=== PATIENT | male | born 1940 | race Caucasian/White ===

== ENCOUNTER 2017-05-23 09:58 | Outpatient (CLI) | payer MEDICARE, BC ==
--- NOTE | 2017-05-23 13:34 | CT ---
CT THORAX WITH CONTRAST CT ABDOMEN WITH CONTRAST CT PELVIS WITH CONTRAST: Date: 05/23/17 HISTORY: 76-year-old male with esophageal cancer, ICD-10: C15.5. Please compare with the last CT scan and comment on 5 mm and 3 mm nodules in left upper lobe. TECHNIQUE: IV iodinated contrast media: 100 mL Isovue-370. Oral contrast media: Readi-Cat. Single phase scans of thorax, abdomen, and pelvis. COMPARISON: 01/30/17 and 12/30/16. FINDINGS: Thorax: On the report of 12/30/16, a tiny nodule was noted at the posterior segment of the left upper lobe ( with arrow) and another tiny nodule was noted in the anterior segment of the left upper lobe. When m atching image to image, the posterior segment nodule (current axial image 16 of 62, series 3; previo us axial image 16 of 61, series 3 on 12/30/16; and image 127 of 1040 of series 4 on the 0.63 mm thin slice current study) is no larger than it was. It actually measures approximately 2 x 3 mm. In retr ospect, it has not changed compared to a much older CT of 09/24/14 (image 22 of 72, series 3). The a pparent difference and greater prominence on the 12/30/16 CT was due to technical differences. This is benign. The 5 mm pulmonary nodule mentioned in the anterior segment of the left upper lobe (seen on current image 22 of 62, series 3; current image 170 of 1040, series 4 on the 0.63 mm very thin slice current study) is unchanged since 12/30/16, measures approximately 4 x 1 mm, and in retrospect, can be seen on the older CT of 09/24/14 (axial image 26 of 72, series 3). It is benign. There are no new pulmonary nodules. No evidence of pulmonary metastasis. There is a small consolidat ion with air bronchogram and architectural distortion at the medial aspect of the left lower lobe ne ar the descending aorta, which is stable since 12/30/16, and smaller compared to 09/24/14. No pleura l effusion. Ectasia of ascending aorta. Calcification of LAD. No pericardial effusion. No mediastina l, hilar, or axillary suspicious lymphadenopathy. Right subclavian implantable vascular access port with distal tip in SVC. Diffuse mild mural thickening of the esophagus, questionable for esophagitis . No obvious large esophageal mass identified. No destructive osseous rib lesion. Abdomen: Bilateral kidneys, abdominal aorta, adrenals, pancreas, liver, and spleen are essentially normal. No retroperitoneal or rae hepatic lymphadenopathy. No obvious pathology of visualized portions of sm all intestine and colon. Scattered slightly enlarged mesenteric lymph nodes are stable since 7, in the left upper quadrant. No free fluid. Hyperdense material in the gallbladder fossa may repre sent gallstones within a contracted gallbladder. Pelvis: Normal appendix. Superior extension of prostate gland indenting the bladder base. No major pathology of the bladder. No iliac chain lymphadenopathy. No free fluid. Rectum and sigmoid colon are unremar kable. No destructive osseous lesion of the pelvis. No interval change overall since 01/31/17 and . IMPRESSION: 1. No evidence of metastatic disease in the chest, abdomen, or pelvis. 2. Mildly enlarged prostate. 3. Coronary atherosclerotic disease. 4. Ectasia of ascending aorta. 5. No interval change overall compared to 01/30/17 and 12/30/16. 6. Small focus of chronic atelectasis in the left lower lobe. JN R POS: FRANCOISE
--- NOTE | 2017-05-23 14:18 | NM ---
NUCLEAR MEDICINE MULTIGATED ACQUISITION CARDIAC SCAN: (MUGA) Date: 05/23/17 HISTORY: 76-year-old male with malignant neoplasm of lower third of the esophagus, for chemotherapy cardiac t oxicity assessment. TECHNIQUE: 31.5 mCi technetium-99m tagged erythrocytes injected IV. Short axis gated acquisition with counts obtained over left ventricular chamber during cardiac cycle . FINDINGS: The left ventricular ejection fraction is 50%. On the 07/04/16 study, it was 54%, and on 06/01/15, it was 57%. IMPRESSION: Left ventricular ejection fraction of 50%. POS: VINOD
[2017-05-23] MEDS ORDERED: Iopamidol 370 76% 100 ML VIAL ONE (16:08)
== END 2017-05-23 09:59 | disposition home or self-care (01) ==
LOC: CT 09:58
PROVIDERS: ATTEND Internal Medicine Medical Oncology
DX: Z08 Encounter for follow-up examination after completed treatment for malignant neoplasm (principal); C15.9 Malignant neoplasm of esophagus, unspecified; I25.10 Atherosclerotic heart disease of native coronary artery without angina pectoris; I77.810 Thoracic aortic ectasia; J98.11 Atelectasis; N40.0 Benign prostatic hyperplasia without lower urinary tract symptoms
CPT/HCPCS: 71260; 74177; 78472; 82565; A9604

== ENCOUNTER 2017-06-19 12:04 | Outpatient (CLI) | payer MEDICARE, BC ==
--- NOTE | 2017-06-19 17:26 | NM ---
MUGA SCAN: Date: 06/19/17 HISTORY: Malignant neoplasm of lower third of the esophagus. RADIOPHARMACEUTICAL: 27 mCi technetium-99m labeled RBCs injected intravenously. FINDINGS: Comparison made with exam of 05/23/17. The left ventricular ejection fraction measures 62% (50% on 05/23/17). Left ventricular wall motion is normal. IMPRESSION: LVEF of 62%. POS: FRANCOISE
== END 2017-06-19 12:05 | disposition home or self-care (01) ==
LOC: NM 12:04
PROVIDERS: ATTEND Internal Medicine Medical Oncology
DX: Z08 Encounter for follow-up examination after completed treatment for malignant neoplasm (principal); C15.5 Malignant neoplasm of lower third of esophagus; R11.2 Nausea with vomiting, unspecified; C16.0 Malignant neoplasm of cardia; D70.9 Neutropenia, unspecified; Z79.899 Other long term (current) drug therapy
CPT/HCPCS: 78472; A9604

== ENCOUNTER 2017-07-17 12:00 | Outpatient (CLI) | payer MEDICARE, BC ==
--- NOTE | 2017-07-17 16:33 | MRI ---
MRI BRAIN WITH AND WITHOUT CONTRAST: Date: 07/17/17 Multiplanar, multisequential imaging of brain obtained. Postcontrast images obtained after administra tion of IV MultiHance. HISTORY: Esophageal cancer with brain mets. Follow-up brain lesions. Comparison made to MRI brain dated 04/24/17. FINDINGS: Ventricles are of normal size and position. Diffuse hyperintensity is seen on FLAIR sequence througho ut the periventricular white matter. This suggests diffuse chronic ischemic white matter change which appears stable. There are bilateral frontal lobe lesions which have been previously described. There is surrounding g liosis at both of these sites with some volume loss on the left surrounding the left lesion indicatin g previously treated metastatic lesions as noted previously. Some intrinsic high T1 signal on the fro ntal lobe lesion is stable in appearance. No significant enhancement of either of these lesions. No i nterval change with either of these lesions. Prior exam had described increasing signal involving two right cerebellar lesions. These lesions are again seen on postcontrast T1 volume acquisition axial images. These lesions are slightly more promin ent today and appear to have slightly enlarged. These lesion measures 7.0 and 5.0 mm, respectively. P reviously, they measured approximately 5.0 and 4.0 mm. No other interval change noted. IMPRESSION: 1. Slight increase in signal and size of the two right cerebellar lesions when compared to the prior exam. 2. Frontal lobe lesions remain stable in appearance. POS: FRANCOISE
[2017-07-17] MEDS ORDERED: Gadobenate Dimeglumine 529 MG/1 ML (20ML VIAL) ONE (17:26)
== END 2017-07-17 12:01 | disposition home or self-care (01) ==
LOC: MRI 12:00
PROVIDERS: ATTEND Radiology Radiation Oncology
DX: C15.9 Malignant neoplasm of esophagus, unspecified (principal); C79.31 Secondary malignant neoplasm of brain
CPT/HCPCS: 70553; A9579

== ENCOUNTER 2017-11-08 09:12 | Outpatient (CLI) | payer MEDICARE, BC ==
--- NOTE | 2017-11-08 12:37 | CT ---
CT CHEST WITH IV CONTRAST: CT ABDOMEN AND PELVIS WITH IV AND ORAL CONTRAST: HISTORY: Esophageal cancer. Re-staging. COMPARISON: 05/23/2017 FINDINGS: The lungs remain hyperinflated. Parenchymal scarring at the left posterior medial lung base is uncha nged in appearance and is likely related to prior radiation. The tiny nonspecific nodule in the left upper lobe is stable. Calcification is again demonstrated in the coronary arteries. A small amount of oral contrast is apparent within the lower esophagus. Nonspecific lymph nodes scattered about th e mediastinum and abdomen are stable. The gallbladder remains decompressed with hyperdense stones. There are degenerative changes of the lumbar spine. The urinary bladder is unremarkable. IMPRESSION: No CT evidence of metastatic disease. Chronic type findings, as detailed above, are stable. POS: VINOD
--- NOTE | 2017-11-08 13:38 | NM ---
RADIONUCLIDE MUGA SCAN LEFT VENTRICLE: HISTORY: Esophageal cancer. COMPARISON: 07/04/2016 FINDINGS: Gated planar images show no focal left ventricular wall motion abnormalities. Left ventricular eject ion fraction is calculated at 62% (previously 54%). IMPRESSION: Normal left ventricular ejection fraction. POS: VINOD
[2017-11-08] MEDS ORDERED: Iopamidol 370 76% 100 ML VIAL ONE (14:55)
== END 2017-11-08 09:13 | disposition home or self-care (01) ==
LOC: CT 09:12
PROVIDERS: ATTEND Internal Medicine Medical Oncology
DX: C15.5 Malignant neoplasm of lower third of esophagus (principal); C16.0 Malignant neoplasm of cardia; D70.9 Neutropenia, unspecified; C78.00 Secondary malignant neoplasm of unspecified lung; C78.7 Secondary malignant neoplasm of liver and intrahepatic bile duct; C77.2 Secondary and unspecified malignant neoplasm of intra-abdominal lymph nodes
CPT/HCPCS: 71260; 74177; 78472; 82565; A9604

== ENCOUNTER 2017-12-20 12:50 | Outpatient (CLI) | payer MEDICARE, BC ==
[2017-12-20] MEDS ORDERED: Gadobenate Dimeglumine 529 MG/1 ML (20ML VIAL) ONE (13:27)
--- NOTE | 2017-12-20 15:31 | MRI ---
MRI BRAIN WITH AND WITHOUT CONTRAST: DATE: 12/20/2017 HISTORY: A 77-year-old male with C79.31, secondary malignant neoplasm of brain. Esophageal cancer, metastatic to the brain, status post external beam radiation therapy. Followup an d restaging. COMPARISON: MRI of 07/17/2017. TECHNIQUE: Multiple sequences obtained in axial, sagittal, and coronal planes; pre and post IV injection of gado linium-based contrast agent: MultiHance 15 mL. FINDINGS: There is no restricted diffusion. No obstructive hydrocephalus. No midline shift or any other mass effect. No extraaxial fluid collection. Again demonstrated is the mucosal thickening throughout the left sphenoid air cell. Whereas previously there was an air-fluid level in this dominant left sphen oid air cell, there is currently signal void in the lumen on all pulse sequences. The very small, approximately 0.7 cm intraaxial enhancing metastatic nodule at the inferomedial anter ior aspect of the right cerebellar hemisphere, with hemosiderin stain indicating prior hemorrhage, rojas s not significantly changed. Located a distance of approximately 1.5 cm lateral to this, at the infe rior aspect of the right cerebellar hemisphere, there is a slightly smaller such metastatic lesion, w hich also has not greatly changed. At the lateral posterior aspect of the left cerebrum, the previously demonstrated complex, solid and cystic, partially irregularly enhancing metastatic mass, measuring approximately 2.1 x 2.1 x 1.7 cm, currently measures approximately 2.4 x 2.7 x 2.1 cm, and has a greater degree of peripheral, irregula r enhancement, especially along its anterior aspect, where the enhancement is thick. There is new th in rim enhancement at its posterior edge, whereas there was no enhancement of the posterior rim on th e prior study. Furthermore, there is now hyperintense signal on the FLAIR sequence filling the lumen of the cystic component of this mass, whereas previously this was hypointense on FLAIR. This indica alejandra more proteinaceous contents of the fluid component of this metastatic lesion. There is greater de gree of surrounding vasogenic edema. Again demonstrated is the small, approximately 0.6 cm round lesion, which is heterogeneously hypointe nse in signal on T1 WI and FLAIR, and hyperintense on T2 WI, located in the right middle frontal gyru s (best seen on FLAIR axial image 19 of 25, series 2). This questionably has a minimal, faint, punct ate focus of enhancement now (axial image 141 of 192, series 8). This has not changed in size. Ther e continues to be surrounding vasogenic edema involving this. There are severe chronic ischemic white matter changes of the cerebrum, No obstructive hydrocephalus. IMPRESSION: 1. Interval worsening of the moderate sized left lateral frontal lobe complex solid and cystic metas tatic brain mass. 2. Two tiny right lower cerebellar metastatic lesions are stable since 07/17/2017. 3. Tiny right upper lateral frontal lobe lesion has not changed in size. Whereas previously it did not enhance, there is questionable minimal enhancement now. 4. Severe chronic ischemic white matter changes, accelerated due to post radiation changes. 5. Sphenoid sinus mucosal disease. 6. No intracranial mass effect or acute hemorrhage. SHAY Castillo POS: CECIL
== END 2017-12-20 12:51 | disposition home or self-care (01) ==
LOC: MRI 12:50
PROVIDERS: ATTEND Radiology Radiation Oncology
DX: C15.9 Malignant neoplasm of esophagus, unspecified (principal); C79.31 Secondary malignant neoplasm of brain; J32.9 Chronic sinusitis, unspecified
CPT/HCPCS: 70553; 82565; A9579; J1642

== ENCOUNTER 2018-02-10 12:33 | Inpatient (IN) | payer MEDICARE, BC ==
[2018-02-10] MEDS ORDERED: Dexamethasone 4 mg/ml Vial ONE (12:52)
[2018-02-10] MEDS ORDERED: Acetaminophen 650 MG Suppository ONE (13:08)
[2018-02-10 13:38] LABS: Bilirubin Negative (Negative); Blood, Urine Moderate (Negative); Clarity CLOUDY (Clear); Glucose, Urine (Dipstick) Negative (Negative); Leukocyte Negative (Negative); Nitrite Negative (Negative); Protein, Urine (Dipstick) Trace mg/dL (Neg-Trace); Specific Gravity, Urine 1.014 (1.002-1.036); pH, Urine 6.5 (5.0-9.0)
[2018-02-10 13:40] LABS: Bacteria/HPF 3+ HPF (None Seen); Hyaline Casts/LPF 4-6 HYALINE CAST LPF (0-3 Hyaline); Pathc Cast-AUWi Flag 0.29 (0-2.49); Squamous Epithelial 0-3 HPF (0-3); WBC/HPF 0-3 HPF (0-3)
[2018-02-10] MEDS ORDERED: Lorazepam 2 MG/ML VIAL SLOW IVP PRN (15:37)
[2018-02-10] MEDS ORDERED: Acetaminophen 325 MG TAB PO PRN (15:37)
[2018-02-10] MEDS ORDERED: Loratadine 10 MG TAB PO PRN (15:37)
[2018-02-10] MEDS ORDERED: cloNIDine 0.1 MG TAB PO PRN (15:37)
[2018-02-10] MEDS ORDERED: Senokot 8.6 MG TAB PO PRN (15:37)
[2018-02-10] MEDS ORDERED: Loperamide HCl 2 MG CAP PO PRN (15:37)
[2018-02-10] MEDS ORDERED: Milk Of Magnesia 30 ML UDCUP PO PRN (15:37)
[2018-02-10] MEDS ORDERED: Ondansetron ODT 4 MG TAB PO PRN (15:37)
[2018-02-10] MEDS ORDERED: Diabetic Tussin 200 MG/10 ML UDCUP PO PRN (15:37)
[2018-02-10] MEDS ORDERED: hydrALAZINE 20 MG/ML VIAL SLOW IVP PRN (15:37)
[2018-02-10] MEDS ORDERED: Sodium Chloride 0.65% Nasal 44 ML BOT EA NARE PRN (15:37)
[2018-02-10] MEDS ORDERED: Mag-Al 1200 mg/1200 mg/30 ML UDCUP PO PRN (15:37)
[2018-02-10] MEDS ORDERED: HYDROcodone/Acetaminophen 5/325 mg Tablet PO PRN (15:37)
[2018-02-10] MEDS ORDERED: Eucerin (Mineral Oil/Petrolatum,White) 30 gm Jar TOP PRN (15:37)
[2018-02-10] MEDS ORDERED: Ondansetron HCl/PF 4 MG/2 ML Vial IVP PRN (15:37)
[2018-02-10] MEDS ORDERED: Labetalol HCl 100 MG/20 ML VIAL SLOW IVP PRN (15:37)
--- NOTE | 2018-02-10 16:42 | HP ---
PRIMARY CARE PHYSICIAN: Dr. Pop Dawson in [place]. REASON FOR ADMISSION: Transfer from [facility] for altered mental status and focal seiz ure. HISTORY OF PRESENT ILLNESS: This is a 77-year-old male, who has metastatic esophageal cancer. He rojas s brain metastasis. His last MRI brain in 12/2017 showed moderate-sized increased and worsening left lateral frontal lobe complex, solid and cystic metastatic brain mass as well as he had right lower c erebellar metastatic lesion and right upper lateral frontal lobe lesion. He does have chronic severe ischemic white matter changes in his brain. This patient had last chemotherapy in mid December. At that time, this MRI was done. He is supposed to get another chemotherapy end of December, but he fell down at his home and he broke his hip. Subsequently, he was admitted in [facility]. After surgical co rrection of that fracture patient was transferred to [facility] and after that the patient was transf erred to [facility] [place]. Patient's son reports that the patient had a little bit progress at [facility], but they were concern ed about his overall weakness and that is why they decided to send him to [facility] [place]. Patient normally at the jail able to ambulate by himself. He was requiring little bit assist ant with shower. He was able to feed by himself and he was getting around whenever he gets tired wit h the wheelchair. Patient has DNR status at jail, and I spoke with the patient's son, who is medical power of a ttorney. He wants to continue DNR while in hospital as well. Today, the patient had a focal seizure and he was having right-sided weakness and he was having diffi culty talking and that is why patient's son was called and patient was taken to local emergency room in [place]. At [facility] he was having stroke-like symptoms. He appeared altered. He was struggling to brush his teeth. He was having right-sided weakness. He was not able to use his right side and h e was not able to provide any meaningful history, because of aphasia. This patient had a CT brain at [facility] and they suspected intraparench ymal hemorrhage of brain or subarachnoid hemorrhage, but Dr. Jimenez's report stated that he does n ot have any bleeding based on his review of imaging. Initially, this patient was planned for admission to neurosurgeon, because of hemorrhage, but after D chayo Jimenez reviewed a CT brain and there was no bleed in his brain that is why he reported that thi s patient should be admitted under Medicine Service. When I saw this patient, at that time patient was hemodynamically stable and he was maintaining his r espirations very well and he was not having any further seizure. CT brain done at [place] [facility] showed 3 cm area of acute hemorrhage within the left frontopa rietal region with a possible underlying hypodense mass in this region. There may be some subarachno id hemorrhage in this region and they recommended further investigation with MRI. The patient was tr eated with lorazepam 1 mg, morphine 4 mg, Zofran 4 mg, IV fluid at [place] [facility], and subseq uently, this patient was transferred to our hospital for further admission. PAST MEDICAL HISTORY: Metastatic esophageal cancer; hypertension; seasonal allergy; senile dementia; history of CVA; oropharyngeal dysphagia; history of UTI; recent history of fracture of right femur, required surgery; hypertension; benign enlargement of prostate. PAST SURGICAL HISTORY: MediPort placement, recent repair of right femur fracture, cervical spine ambrosio namita. PAST PSYCHIATRIC HISTORY: Reviewed and negative. ALLERGIES: PENICILLIN. CURRENT HOME MEDICATIONS: Proscar 5 mg p.o. daily, Flonase nasal spray daily, Keppra 1000 mg p.o. b. i.d., Mycostatin swish and swallow p.r.n., Protonix 40 mg p.o. daily, Flomax 0.4 mg p.o. daily, Decad helen 4 mg t.i.d., Dulcolax p.r.n. basis. REVIEW OF SYSTEMS: All review of system tried to review with the patient, but unable to review at th is point, because of altered mental status and patient's cognitive impairment. CODE STATUS: I spoke with the patient's son, who is present at bedside and confirmed the patient's D NR status. Patient's son is medical power of employment law attorney. EMERGENCY ROOM COURSE: Patient was given Zofran, Ativan, morphine 4 mg, IV fluid at [place] [facility]. SOCIAL HISTORY: The patient is . He currently lives at [facility]. He is retired. He has 3 children. His son is medical power of employment law attorney. He is DNR. He does not have any tobacco, alcohol, or other illicit drug abuse history. FAMILY HISTORY: Father had a myocardial infarction. PHYSICAL EXAMINATION: VITAL SIGNS: Currently, blood pressure 144/79, pulse 91, respiratory rate 15, temperature 100.2 and then 101.1 rectally, saturation 98% on 2 liters, weight 69.9 kilograms. GENERAL: Patient is currently lethargic, opens eyes on verbal command, but does not follow any comma nd. He has incomprehensible speech. HEAD: Normocephalic, atraumatic. EYES: Dry eyes. No nystagmus, no pallor. ENT: Dry mucous membrane, no oral lesion, no pharyngeal erythema, no exudate. NECK: Supple, no JVD, no thyromegaly, no carotid bruit. LUNGS: Coarse breath sound noted. CARDIAC: S1 and S2 regular. No murmur elicited, no gallop, no rub. ABDOMEN: Soft, bowel sounds present, nontender, nondistended. No organomegaly, no mass, no suprapub ic tenderness. BACK EXAMINATION: Unremarkable, no CVA tenderness. EXTREMITIES: Upper extremities, passive movement of all joints are normal. Lower extremities, passi ve movement of all joints are normal. Patient does have bruise on the right lower extremity, patient does have edema on both lower extremities. Good distal pulsation. SKIN: The patient does have a bruise on the right lower extremity, which his son attributes after a fall, resolving. NEUROLOGIC: Unable to examine neurologically, because patient is not following commands. SIGNIFICANT LABORATORY DATA: CBC: WBC 14.4, hemoglobin 11.3, platelets 87. Troponin I 0.03. BMP, glucose 80, BUN 19, creatinine 0.63. Sodium 138, potassium 4.3, chloride 99, carbon dioxide 30, calc ium 8.7, bilirubin 1.6, alkaline phosphatase is 158, SGOT 18, SGPT 72, protein 5.8, albumin 2.8. INR 1.0. CT brain reported from [place], has a 3 cm area of acute hemorrhage within the left frontopari etal region with possible underlying hypodense mass in this region. No significant mass effect. The re is some subarachnoid hemorrhage in this region. Lactic acid is 1.1. Urinalysis, microscopic hematuria with bacteria 3+. ASSESSMENT AND PLAN: 1. Acute encephalopathy. 2. Suspected intraparenchymal/subarachnoid hemorrhage based on CT scan report. 3. Worsening metastatic lesion in his brain with primary malignancy esophagus. 4. Right-sided weakness, dysphagia, dyspepsia, and altered mental status, likely related with metast atic lesion in his brain. 5. Sepsis. Source is unclear, but suspected urinary tract. 6. Benign enlargement of prostate. 7. Dementia. 8. DO NOT RESUSCITATE status. 9. Focal seizure. 10. Metastatic esophageal cancer. 11. Poor performance status. 12. Physical deconditioning. PLAN: As per neurosurgeon's recommendations, we will admit under our service. Neurosurgeon will be consulted. Oncologist, Dr. Hamilton will be consulted. Dr. Kalpesh Cho will be consulted to decide about radiation therapy. This patient's performance status is very poor. Doubt the patient is a goo d candidate for any kind of further intervention. We will consult palliative care as well. We will closely monitor in stroke floor. We will do repeat MRI brain. We will repeat laboratories tomorrow. We will start empiric antibiotic therapy. We will do blood culture and urine culture. We will con tinue the IV fluid. Speech Therapy will be consulted. CODE STATUS: DNR. Patient's son is the medical power of employment law attorney. Deep venous thrombosis prophylaxis. Sequential compression device boots only. Gastrointestinal prophylaxis, Protonix 40 mg IV daily. Disposition plan based on clinical course. We are expecting patient's stay in hospital more than 2 m idnights. Plan of care discussed with the patient and patient's son at bedside in the emergency room .
[2018-02-10] MEDS: Dexamethasone 4 mg/ml Vial SLOW IVP SCH (18:37)
[2018-02-10] MEDS: Sodium Chloride 0.9% 1,000 ML IV SCH (18:38)
[2018-02-10] MEDS: Artificial Tears 18 DROP/0.9 ML EA EYE PRN (18:39)
[2018-02-10 18:52] VITALS: BMI 23.7
[2018-02-10] MEDS: Cefepime 2 GM in Sodium Chloride 0.9% 100 ML IVPB SCH (19:28)
[2018-02-10] MEDS: levETIRAcetam In NaCl (Iso-Os) 1,000 MG in Premix Bag 1 BAG IVPB SCH (21:29)
--- NOTE | 2018-02-10 21:29 | CON ---
DATE OF CONSULTATION: 02/10/2018 CHIEF COMPLAINT: Seizures. HISTORY OF PRESENT ILLNESS: This is a 77-year-old male who lives in a halfway who was transferred to the [facility] for stroke-like symptoms. The patient's son was in his hospital room relaying information. The halfway found him dressed this morning with having difficulty brushing his teeth. It appeared as though he was having some seizure symptoms as well which on the right side, they contacted the son who told them to treat this as a seizure. The halfway was unable to control the symptoms and transferred him to the [facility]. Upon arrival at the [facility], they did a CAT scan and found what appeared to be a stroke/bleed/mass. The patient normally ambulates with a walker, uses a wheelchair, approximately a month ago he was diagnosed with seizures and he fell and broke his hip at that time. Since then he has been doing physical therapy and progressively getting stronger. The patient is currently in treatment for cancer with Dr. Cho and Dr. Hamilton. They actually saw him yesterday for followup for chemo and radiation. Originally, they had wanted to do some more testing yesterday; however, the patient was too tired. REVIEW OF SYSTEMS: Review of systems is normal per the son. He states there was no recent history of fevers or chills, changes in vision or hearing, any difficulty swallowing, no sore throat, abdominal pain, nausea or vomiting. No difficulty with urination, diarrhea or constipation. Some generalized muscle weakness was noted. PAST MEDICAL HISTORY: Includes esophageal cancer, hypertension, seizures, stroke, dysphagia. PAST SURGICAL HISTORY: Cervical spine surgery, fracture surgery. ALLERGIES: The patient is allergic to PENICILLIN. SOCIAL HISTORY: The patient is a former smoker. He quit 35-40 years ago. He does not use alcohol. Currently, he is living in a halfway, doing rehab, the son was hoping that he was soon going to be able to progress back to his home with some semblance of independence. MEDICATIONS: Biscolax, dexamethasone, Tylenol, finasteride, (fluticasone nasal) , Keppra, nystatin, pantoprazole, PHYSICAL EXAMINATION: VITAL SIGNS: Blood pressure 160/87, heart rate 67, respiratory rate 20, temperature 97.7, 97% breathing room air. CONSTITUTIONAL: The patient appears well-developed, does not appear to be in any distress. He is comfortable in his hospital bed. ENT: The patient can hear. HEAD: Atraumatic, normocephalic. EYES: Conjunctiva is clear. No icterus. Pupils are equal, round, and reactive to light. Extraocular movements are intact. CARDIOVASCULAR: Regular rate and rhythm. PULMONARY: Normal work of breathing room air. MUSCULOSKELETAL: The patient is moving upper extremities, normal range of motion of the neck. No edema or deformity noted. Lower extremities were not moving to painful stimuli, the patient reacted to pressure. NEUROLOGIC: The patient is alert. He is awake. He has a slight tremor in his right face, patient tries to respond to commands. He tries to vocalize, but his speech is unclear. The patient was able to grasp my hands, left was better than the right side. IMAGING: CT brain shows a 3 cm hemorrhage, left frontal parietal, which is possible mass with subarachnoid hemorrhage as well. The patient has known mets in his brain already. ASSESSMENT AND PLAN: This is a 77-year-old man who reports to the ER for evaluation of altered mental status and seizure activity. This patient is known to Dr. Childress. He has known brain metastasis. The CT is suggestive of hemorrhage is most likely slow growth his previously known tumor. We will order an MRI and provide seizure control for this patient. Oncology should be consulted as well. JEROMY
[2018-02-11] MEDS: Dexamethasone 4 mg/ml Vial SLOW IVP SCH ×5 (00:01→23:12)
[2018-02-11] MEDS: Cefepime 2 GM in Sodium Chloride 0.9% 100 ML IVPB SCH ×2 (05:30→18:10)
[2018-02-11] MEDS: Sodium Chloride 0.9% 1,000 ML IV SCH ×3 (05:36→22:00)
[2018-02-11 05:58] LABS: ALT (SGPT) 44 U/L (8-55); AST (SGOT) 13 U/L (5-34); Albumin 2.2 g/dL (3.4-4.8); Alkaline Phosphatase 140 U/L (40-150); Anion Gap 11 mmol/L (10-20); BUN (Urea Nitrogen) 24 mg/dL (8.4-25.7); Bilirubin, Total 1.2 mg/dL (0.2-1.2); Calc. Creatinine Clearance 108 mL/min (70-130); Calcium 7.8 mg/dL (7.8-10.44); Carbon Dioxide 25 mmol/L (23-31); Chloride 102 mmol/L (98-107); Estimated GFR-MDRD Greater than 90; Globulin 2.5 g/dL (2.4-3.5); Glucose 109 mg/dL (83-110); Potassium 4.8 mmol/L (3.5-5.1); Protein, Total 4.7 g/dL (5.8-8.1); Sodium 133 mmol/L (136-145)
[2018-02-11] MEDS ORDERED: Nystatin 100,000 Units/mL UDCUP SSW PRN (06:15)
[2018-02-11] MEDS ORDERED: Bisacodyl 5 MG TAB PO PRN (06:15)
[2018-02-11 07:04] LABS: #Lymphocytes 0.3 thou/uL (1.20-3.40); #Monocytes 0.1 thou/uL (0.11-0.59); #Neutrophils 8.8 thou/uL (1.40-6.50); %Basophils 0.3 % (0.0-1.0); %Eosinophils 0.2 % (0.0-10.0); %Lymphocytes 3.1 % (21.0-51.0); %Monocytes 1.5 % (0.0-10.0); %Neutrophils 94.9 % (42.0-75.0); Hemoglobin 10.2 g/dL (14.0-18.0); MDiff Complete? YES; Mean Corpuscular HGB CONC 31.8 g/dL (32.0-36.0); Mean Corpuscular Hemoglobin 30.8 pg (27.0-31.0); Mean Platelet Volume 8.7 fL (7.4-10.4); Ovalocytes SLIGHT = 2-5 cells (100X) (0-1/hpf); PLT Morphology Comment Appears Decreased; Platelet Count 58 thou/uL (130-400); RBC Distribution Width 14.6 % (11.5-14.5); White Blood Cell (WBC) Count 9.2 thou/uL (4.8-10.8)
--- NOTE | 2018-02-11 07:58 | PRG ---
DATE OF SERVICE: 02/11/2018 I personally examined the patient, reviewed records and imaging, and agree with documentation of Tre Latham PA-C dated 02/10/2018. Briefly, Erickson Suero is a 77-year-old gentleman with known brain metastases, known esophageal car cinoma, who was transferred from [place] for new neurological decline. Mr. Suero has had whole-bra in radiation therapy. He has had a stereotactic radiosurgery to 2 lesions in the cerebellum this yea r, under the direction of Dr. Childress and Dr. Cho. He has a known lesion in the motor strip on the d ominant hemisphere. He is on Keppra at home, but it is unclear whether he is taking his medication a s prescribed. Overnight, Mr. Suero was placed on our stroke unit. His vitals remained stable. This morning, whe n I entered the room, he is wide awake. He is smiling. He is attempting to converse, but the words are coming very slowly and it is difficult to form them. He has a reasonable receptive language func tion, but almost no expressive language function sounds and a few syllables come out, but words are y et to be a pronounced in any meaningful way. I do not see much in the way of other new deficits. Th ere is good apparent motor and sensory function otherwise. CT examination at the [facility] showed some increased thickness of density around the cystic lesion in the inferior portion of the motor strip in the left hemisphere. This increased density was read as h emorrhage by an outside hospital, but could be consistent with the cortes of a previously radiated les ion with some increased density and/or calcification. An MRI scan would be most beneficial to compar e to previous MR imaging. ASSESSMENT: Esophageal carcinoma, metastatic to brain, prior brain irradiation, prior brain stereota ctic radiosurgery, known lesion in the motor strip on the left side causing dysphasia. PLAN: My plan for Mr. Suero is to explore all chemotherapy and radiation options before resorting to surgery on this lesion. Surgical intervention would make his speech deficit and likely make it pe rmanent and slightly worse. Quality of life will have to be discussed with family before undertaking that intervention, the risk of the surgery is higher given the radiation in the past. I will discus s the case with Dr. Childress and one of us will continue to follow while he is in the hospital.
--- NOTE | 2018-02-11 08:37 | PDOC.PN ---
- Subjective Encounter Start Date: 02/11/18 Encounter Start Time: 06:40 -: old records requested/rev pt's speech still affected, weakness seems improved, no headache or further seizure - Objective MAR Reviewed: Yes Vital Signs & Weight: Vital Signs (12 hours) Temp Pulse Resp BP Pulse Ox 02/11/18 07:39 98.2 F 44 L 18 02/11/18 07:34 98.2 F 44 L 18 130/66 94 L 02/11/18 03:26 97.5 F L 47 L 20 138/73 96 02/10/18 23:10 98.1 F 51 L 20 112/65 91 L 02/10/18 21:20 98.1 F 51 L 20 91 L I&O: 02/10/18 02/11/18 02/12/18 06:59 06:59 06:59 Intake Total 1349 Output Total 600 400 Balance 749 -400 Result Diagrams: 02/11/18 04:54 02/11/18 04:54 EKG Reviewed by me: Yes (nsr) Phys Exam - Physical Examination Constitutional: NAD HEENT: PERRLA, moist MMs, sclera anicteric Neck: no JVD, supple Respiratory: no wheezing, no rales, no rhonchi Cardiovascular: RRR, no significant murmur, no rub Gastrointestinal: soft, non-tender, no distention, positive bowel sounds Musculoskeletal: pulses present, edema present Neurological: moves all 4 limbs Lymphatic: no nodes Psychiatric: normal affect Skin: no rash, normal turgor Dx/Plan (1) UTI (urinary tract infection) Status: Acute (2) Dysphasia Code(s): R47.02 - DYSPHASIA Status: Acute Comment: expressive aphasia/ dysphasia (3) Encephalopathy acute Code(s): G93.40 - ENCEPHALOPATHY, UNSPECIFIED Status: Acute (4) Hyponatremia Code(s): E87.1 - HYPO-OSMOLALITY AND HYPONATREMIA Status: Acute (5) Oropharyngeal dysphagia Code(s): R13.12 - DYSPHAGIA, OROPHARYNGEAL PHASE Status: Acute (6) Physical deconditioning Code(s): R53.81 - OTHER MALAISE Status: Acute (7) Right sided weakness Code(s): R53.1 - WEAKNESS Status: Acute Comment: improved (8) Sepsis Code(s): A41.9 - SEPSIS, UNSPECIFIED ORGANISM Status: Acute (9) BPH (benign prostatic hyperplasia) Code(s): N40.0 - BENIGN PROSTATIC HYPERPLASIA WITHOUT LOWER URINRY TRACT SYMP Status: Chronic (10) Esophageal cancer Status: Chronic Qualifiers: Malignant neoplasm of esophagus location: unspecified location Qualified Code(s): C15.9 - Malignant neoplasm of esophagus, unspecified Comment: stage IV (11) HTN (hypertension) Code(s): I10 - ESSENTIAL (PRIMARY) HYPERTENSION Status: Chronic (12) History of malignant neoplasm metastatic to brain Code(s): Z85.9 - PERSONAL HISTORY OF MALIGNANT NEOPLASM, UNSPECIFIED Status: Chronic (13) Seizure disorder Code(s): G40.909 - EPILEPSY, UNSP, NOT INTRACTABLE, WITHOUT STATUS EPILEPTICUS Status: Chronic (14) Dementia Code(s): F03.90 - UNSPECIFIED DEMENTIA WITHOUT BEHAVIORAL DISTURBANCE Status: Chronic - Plan cont current plan of care, continue antibiotics, PT/OT, speech therapy, DVT proph w/SCDs * today MRI * oncology and radiation oncology to decide if any treatment option offered to him * continue decadron and keppra * continue protonix * will start PT/OT * speech therapy * medication reviewed as below * symptomatic treatment * palliative care for goal of care * prognosis is poor. * continue cefepime for now * diet when cleared by speech Review of Systems - Review of Systems Other: not reliable with pt as he has expressive aphasia - Medications/Allergies Allergies/Adverse Reactions: Allergies Allergy/AdvReac Type Severity Reaction Status Date / Time Penicillins Allergy Verified 02/19/16 15:26 Medications: Current Medications Acetaminophen (Tylenol) 650 mg PO Q4H PRN PRN Reason: Headache/Fever or Pain Hydrocodone Bitart/Acetaminophen (Whitt 5/325) 1 tab PO Q4H PRN PRN Reason: Moderate Pain (4-6) Al Hydroxide/Mg Hydroxide (Maalox) 30 ml PO Q6H PRN PRN Reason: Heartburn or Indigestion Artificial Tears (Tears Naturale) 0 drop EA EYE PRN PRN PRN Reason: Dry Eyes Last Admin: 02/10/18 18:39 Dose: 20 drop Bisacodyl (Dulcolax) 10 mg PO DAILY PRN PRN Reason: Constipation Clonidine (Catapres) 0.1 mg PO Q4H PRN PRN Reason: SBP GREATER THAN 160 Dexamethasone (Decadron) 4 mg SLOW IVP Q6HR [facility] Last Admin: 02/11/18 05:30 Dose: 4 mg Finasteride (Proscar) 5 mg PO DAILY [facility] Fluticasone Propionate (Flonase Nasal Empire) 0 gm NASAL DAILY [facility] Guaifenesin (Robitussin Sf) 200 mg PO Q4H PRN PRN Reason: Cough Hydralazine HCl (Apresoline) 10 mg SLOW IVP Q4H PRN PRN Reason: SBP GREATER THAN 160 Levetiracetam 1,000 mg/ Device 100 mls @ 200 mls/hr IVPB BID [facility] Last Admin: 02/10/18 21:29 Dose: 100 mls Sodium Chloride (Normal Saline 0.9%) 1,000 mls @ 100 mls/hr IV .Q10H [facility] Last Admin: 02/11/18 05:36 Dose: 1,000 mls Cefepime HCl 2 gm/ Sodium (Chloride) 100 mls @ 200 mls/hr IVPB 0500,1700 [facility] Last Admin: 02/11/18 05:30 Dose: 100 mls Labetalol HCl (Normodyne) 20 mg SLOW IVP Q4H PRN PRN Reason: SBP GREATER THAN 160 Loperamide HCl (Imodium) 2 mg PO PRN PRN PRN Reason: Diarrhea/Loose Stools Loratadine (Claritin) 10 mg PO DAILYPRN PRN PRN Reason: Sinus Symptoms Lorazepam (Ativan) 2 mg SLOW IVP Q15MIN PRN PRN Reason: Seizures Magnesium Hydroxide (Milk Of Magnesium) 30 ml PO DAILYPRN PRN PRN Reason: Constipation Mineral Oil/White Petrolatum (Eucerin Cream) 0 gm TOP BIDPRN PRN PRN Reason: Dry Skin Nystatin (Nystatin 100,000 Units/Ml) 5 ml SSW QID PRN PRN Reason: Mouth Irritation Ondansetron HCl (Zofran Odt) 4 mg PO Q6H PRN PRN Reason: Nausea/Vomiting Ondansetron HCl (Zofran) 4 mg IVP Q6H PRN PRN Reason: Nausea/Vomiting Pantoprazole Sodium (Protonix) 40 mg IVP DAILY [facility] Saccharomyces Boulardii (Florastor) 250 mg PO DAILY [facility] Senna (Senokot) 2 tab PO HSPRN PRN PRN Reason: Constipation Sodium Chloride ([place]ullen Nasal Empire 0.65%) 0 ml EA NARE QIDPRN PRN PRN Reason: Nasal Congestion Tamsulosin HCl (Flomax) 0.4 mg PO DAILY [facility]
[2018-02-11] MEDS: Saccharomyces boulardii 250 MG CAP PO SCH ×2 (09:35→13:06)
[2018-02-11] MEDS: Tamsulosin HCl 0.4 MG CAP PO SCH ×2 (09:35→13:06)
[2018-02-11] MEDS: Pantoprazole 40 MG VIAL IVP SCH (09:35)
[2018-02-11] MEDS: Finasteride 5 MG TAB PO SCH ×2 (09:35→13:05)
--- NOTE | 2018-02-11 11:53 | CON ---
DATE OF CONSULTATION: 02/11/2018 HISTORY OF PRESENT ILLNESS: The patient is a 77-year-old man, who was brought to the hospital by his family after they received a call from their physician at the shelter stating he has had mental status changes and recurrence of his seizures. He has had 2 events where he would have seizures and these are mostly described as facial twitching and right arm twitching with the loss of speech and altered mental status, which can last up to 1-2 days and this has happened twice before and this is his third event. He is on Keppra for the same. He has the oncologist and he has brain metastasis and he was brought from the shelter. He has had an MRI scan performed in December, which shows moderate left frontal lobe complex solid and cystic metastatic brain mass and two tiny right lower cerebellar metastatic lesions, which have been stable since 07/2017, tiny right upper lateral frontal lobe lesion and severe chronic white matter change, and I am unable to access his CT head from this visit. However, there has been a report of him having a CT scan and evidence of subarachnoid hemorrhage. This was done at [place], [place]. His oncologist is in town here and patient is currently pending an MRI. The patient's CT of the brain at [facility] per his chart showed 3 cm area of acute hemorrhage in the left frontoparietal region and subarachnoid region and I believe Neurosurgery has been consulted. PAST MEDICAL HISTORY: Significant for metastatic esophageal cancer, hypertension, seasonal allergies, senile dementia, history of CVA, urinary tract infections, and prostatic enlargement. PAST SURGICAL HISTORY: Right femur surgery for fracture, MediPort placement, and cervical spine surgery in the past. ALLERGIES: He is allergic to PENICILLIN. MEDICATIONS: At home he is on 1000 mg b.i.d. of Keppra and Flomax and Protonix and Decadron and Dulcolax as needed. REVIEW OF SYSTEMS: Unobtainable. SOCIAL HISTORY: He is living in a shelter and is and retired. FAMILY HISTORY: Father had an NE. LABORATORY DATA: So far white count 9.2, hemoglobin 10.2, hematocrit 32, platelets are 58. Chemistries: Sodium 133, potassium 4.8, chloride 102, bicarbonate 25, BUN 24, creatinine 0.59. Lactic acid 1.1, AST 13, ALT 44, alkaline phosphatase 140, serum protein 4.7, albumin 2.2, globulin 2.5. TSH 0.66. Prolactin 19.03 and toxicology Keppra level is 8.7. Urinalysis as noted with bacteria. PHYSICAL EXAMINATION: VITAL SIGNS: Blood pressure is 130/66, temperature 98.2, pulse 44, and respiratory rate is 18. GENERAL APPEARANCE: He seems to be confused and has facial twitching when aroused. CHEST: Clear vesicular breathing. CARDIOVASCULAR: S1 and S2 heard, no murmurs. ABDOMEN: He seems to have some tenderness in the abdomen. NEUROLOGICAL: The patient is nonverbal, noncommunicative and does not follow any commands. He has facial twitching as well as right upper extremity twitching indicating of seizure activity. He seems to have preserved eye movements. No gaze deviation is noted. Pupils are reactive and he has right facial droop. On motor examination, he does move all extremities bilaterally. Does have a twitching of his right upper extremity, indicative of seizure activity. Cerebellar sensory could not be tested. Gait not tested. IMPRESSION: The patient is a 77-year-old man with history of frontal lobe lesions due to metastatic cancer. At this time, he seems to have had a hemorrhagic lesion in the left frontal lobe based on the chart review and unable to access that CT scan in particular, I also understand Neurosurgery has been consulted. He needs more effective control of his seizures. Therefore, I will add Dilantin to his treatment regimen and I will follow up with you. JEROMY
[2018-02-11] MEDS: levETIRAcetam In NaCl (Iso-Os) 1,000 MG in Premix Bag 1 BAG IVPB SCH ×2 (13:07→21:00)
--- NOTE | 2018-02-11 13:10 | MRI ---
BRAIN MRI WITH AND WITHOUT CONTRAST: COMPARISON: 12/20/17. CLINICAL HISTORY: Brain metastasis. FINDINGS: There has been interval enlargement of heterogeneously enhancing mass situated at the lateral aspect of the left frontoparietal lobe. Mass measures approximately 3.5 x 3.1 cm in axial dimensions, where it measured at an approximate 2.5 x 2.4 dimension on the 12/20/17 exam. Extensive loop leukoencephal opathy is redemonstrated which may relate to prior radiation therapy. This obscures potential surrou nding vasogenic edema of the above-described lesion as it encases this region of the brain parenchyma . Redemonstration of susceptibility related to tumor hemorrhage and/or calcification at the lateral left frontoparietal region. There is also a small nidus of susceptibility again seen at the anterome dial right cerebellar hemisphere. There is no acute territorial infarction. There is mild rightward subfalcine herniation at level of septum pellucidum measuring 4 mm. Vague areas of enhancement of t he anterior right cerebellar hemisphere are demonstrated. Enhancement of the left parietal calvarium overlying the above-described frontoparietal lesion is again seen. Incidental note of bilateral mas toid fluid, left greater than right, and minimal mucosal thickening. [place] intraocular lenses are a bsent. IMPRESSION: 1. Interval progression in volume of left frontoparietal lesion with associated susceptibility. 2. Vague areas of enhancement of the right cerebellar hemisphere are redemonsrated. 3. Severe, radiation-induced leukoencephalopathy. This does obscure potential vasogenic edema surro unding the aforementioned Left frontoparietal lesion. There is, however, 4 mm rightward subfalcine h erniation at level of the septum pellucidum. POS: [facility]
--- NOTE | 2018-02-11 17:33 | CON ---
DATE OF CONSULTATION: 02/11/2018 CHIEF COMPLAINT: Mr. Suero is a 77-year-old gentleman well known to me. 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 HISTORY OF PRESENT ILLNESS: Mr. Suero was initially diagnosed with adenocarcinoma in the GE juncti on of the esophagus in 11/2013. At that time, he had metastatic disease to the liver. He was actual ly treated with concurrent chemoradiotherapy. He did well with treatment and actually obtained a com plete response to his chemotherapy and radiation. Sometime after that he was diagnosed with progress rafael disease in the lung. He was again started back on chemotherapy and again responded to the chemot herapy with substantial improvement in his lung disease. In 2015, he was diagnosed with multiple bra in metastases. At that time, he was felt to not be a candidate for radiosurgery because of the size and number of brain metastasis. He therefore underwent whole-brain radiation therapy to 35 corley in 1 4 fractions, which was completed on 01/15/2016. He was followed and did well with significant improv ement in his metastatic disease in the brain until 07/2017, when he developed some progression of his disease in his cerebellum into lesions. Systemically, his disease was under control while he was ma intained on maintenance chemotherapy. Therefore, in 08/2017, he was treated with radiosurgery to 18 corley to each of the small lesions in the cerebellum. He was doing well and followed after that time. In 12/2017, he underwent an MRI of the brain which showed enlargement of one of the lesions previou sly known that had not been treated with radiosurgery. This has grown from around 2.1 cm to 2.7 cm i n the left parietal region of the brain with some surrounding vasogenic edema. He was to see me to jose raul beckham his options several days after the scan, but had a fall and fractured his hip and had to be li fe flighted from [place] to [place]. He underwent a right hip replacement. He then was in rehabilita tion in [place] and was doing well and progressing well and ambulating with the use of a walker. About 2 weeks ago, he left the rehab center in [place] and went to [facility] in [place]. I actually saw him last Monday. This is about 2 months after his last MRI. At that time, he was having more diffi culty with ambulation then he had been several weeks prior. He was on dexamethasone t.i.d., and was not clear to me since his weakness seemed to be in his proximal muscles as to whether he might be hav ing some steroid myopathy as it was not certain how long he had been on the dexamethasone. Of note, he has not had any chemotherapy or radiation for the past 2 months. We were planning to decrease his dexamethasone some and get an MRI of the brain. We were going to get an MRI of the brain last y, but the patient was too tired and did not want to stay for the MRI of the brain. Yesterday he had a seizure at [facility] and was brought to the emergency room in [place]. Apparently, a CT sca n of the head there was concerning for possible bleeding. He was transferred here to [place] for evaluation. He was seen by Neurosurgery. Earlier today, an MRI of the brain was obtained which show ed enlargement of the left parietal lesion with surrounding vasogenic edema. The lesion now measures 3.5 cm in size. He had no other enlargement or progression of other lesions in the brain and had no new lesion. I have been asked to see him to discuss his treatment options. He does have an express rafael aphasia. He does vocalize, but his words do not make sense. However, he does seem to understand when I talk to him. He has not had any recent headaches or nausea or vomiting. Again, he was havin g more difficulty with ambulation with weakness in his legs on Monday. He voices no other complaints . PAST MEDICAL HISTORY: 1. Esophageal cancer as mentioned above. 2. Status post right hip fracture with ORIF in 12/2017. 3. Hypertension. 4. Osteoarthritis. 5. Sinus surgery in 1977. MEDICATIONS: Cefepime, dexamethasone, Proscar, Flonase nasal spray, Dilantin, Keppra, nystatin, Prot karis, Flomax, Zofran p.r.n., and Florastor. ALLERGIES: PENICILLIN, which caused a rash. SOCIAL HISTORY: The patient used to smoke, but only smoked for about 5 years and has not smoked for more than 40 years. He did drink 3-4 beers per day. The patient is and does live in [facility]. His two sons are present in his room at this time. He is a retired substance abuse nurse. FAMILY HISTORY: His grandmother had cancer, the type of which is unknown to him. REVIEW OF SYSTEMS: Review of system is limited by the patient's expressive aphasia. Twelve-system d oes otherwise appear negative and was so on Monday when I saw him as an outpatient. PHYSICAL EXAMINATION: VITAL SIGNS: Height 5 feet 8 inches, weight 156 pounds, blood pressure is 134/74, pulse is 46, respi rations are 18, temperature is 98.8, O2 saturation is 96% on room air. GENERAL: He is alert and does appear to have understanding. His speech is unable to be understood, but he does vocalize. Karnofsky performance status is 30%. He does follow commands fairly well. EYES: Pupils equal, round, react to light. Extraocular movements are intact. ENT: Oral cavity and oropharynx normal without lesion or erythema. Palate elevates symmetrically. Gingiva is intact. NECK: Supple without cervical or supraclavicular adenopathy. No thyromegaly. Larynx midline. LUNGS: Breathing nonlabored. Clear to auscultation. HEART: Regular rate and rhythm without murmur. No lower extremity edema. LYMPHATIC: No axillary or inguinal adenopathy. ABDOMEN: Bowel sounds present. Soft, nontender, nondistended without mass or hepatosplenomegaly. L iver percusses to normal size. NEUROLOGIC: Cranial nerves II-XII are grossly intact. He does have an expressive aphasia. Motor st rength is 4/5 in both upper extremities in all muscle groups tested. In lower extremity again proxim ally his hip flexors seem extremely weak. Distally, he has more strength with dorsiflexion and plant ar flexion be in a 3/5. Gait was not able to be tested. RADIOLOGIC: MRI of the brain performed earlier today was personally reviewed. Again, he has a 3.5 c m enhancing lesion in the left parietal lobe with surrounding vasogenic edema. His other 3 known bra in metastases are all subcentimeter and do not appear changed. He does have some chronic white matte r changes from his radiation. LABORATORY AND X-RAY FINDINGS: CBC revealed a white blood count of 9200 with hemoglobin of 10.2, hem atocrit of 32.0, platelet count of 58,000. Chemistry group revealed a sodium of 133 with a creatinin e of 0.59. Albumin was 2.2 with a serum total protein of 4.7. ASSESSMENT: Mr. Suero is a 77-year-old gentleman with known brain metastasis from metastatic esoph ageal adenocarcinoma who now has progression of his disease in the left parietal region of the brain. He did experience a seizure and has had a marked decline in performance status over the past severa l weeks. PLAN: I had a long discussion with Mr. Suero and his two sons at his bedside regarding his diagnos is, prognosis, prognostic factors, and treatment options. Again, I do think he understands my conver sation, although he is not able to vocalize or communicate effectively. I did explain to them the pr ogression of disease in the brain. He has progressed at a solitary site. He has been seen by Neuros urgery. Neurosurgery indicates that surgical intervention would likely leave him with a permanent de ficit, especially with his speech. I would not be in favor of surgical intervention given his poor p erformance status and the fact that he would likely have long-term deficits. The risk of surgery I renay hink would be fairly significant which would also be complicated by the fact that he has had previous radiation. Hopefully, some of his decline in performance status from Monday to today is just becaus e he is postictal. However, he has been a little more than 24 hours since his seizure. Hopefully, s ome of this will improve just with the addition of the new seizure medicine (Dilantin) and the increa se of steroids. I agree with the increase in steroids. If his performance status does improve in next 24 hours, then we can consider whether we should treat this lesion that has progressed in the brain. If he has an improvement in performance status, then before we make a decision regarding proc eeding with any type of treatment, we would need to obtain a CT scan of the chest and abdomen to eval uate the systemic control of his disease. If he has progressive disease in the lungs and the liver, which are sites of previously known metastasis, then that would definitely impact our decision. [facility] consult has already been requested and we will await their input on this also. If he rojas s progressive disease systemically, then his best option may be to do no therapy in regard to the bra in metastasis because of survival is likely to be quite short. Even if he does not have any progress ion in his disease systemically, unless his performance status improves, his survival is likely to be quite short also. Additionally, we would not be certain that radiation would result in any kind of meaningful improvement in quality of life. Therefore, if in the next 24 hours, he does not show impr ovement at least back towards where he was on Monday, then our best option may be to do no further th erapy, but supportive care alone with hospice care. If he does improve, then we could consider treat ment options. Treatment options could be either a fractionated course of radiosurgery or an accelera dahlia course of radiosurgery to the progressive lesion in the brain. I have previously discussed with him the logistics, benefits, and risk of radiation therapy on Monday. So, we will wait to see how mu ch improvement he makes just with the new seizure medicine, recovery from a seizure, and increased st eroid dose before making a final decision regarding his treatment options. I will follow the patient with you. Thank you for this interesting consultation.
--- NOTE | 2018-02-11 18:09 | RAD ---
SINGLE VIEW CHEST; Date: 02/11/18 COMPARISON: None. HISTORY: Aspiration and cough. FINDINGS: Single view of the chest shows an enlarged cardiomediastinal silhouette. There is possibly a retrocar diac opacity. No pleural effusion is seen. There is a MediPort with its tip in the superior vena cava . IMPRESSION: Retrocardiac opacity may represent atelectasis or an infiltrate. POS: [facility]
[2018-02-11] MEDS: Fosphenytoin Sodium 100 MG in Sodium Chloride 0.9% 50 ML IVPB SCH (20:00)
[2018-02-11] MEDS: Artificial Tears 18 DROP/0.9 ML EA EYE PRN (21:00)
[2018-02-11] MEDS: Fluticasone Propionate Nasal Spray 16 gm Bottle NASAL SCH (21:30)
--- NOTE | 2018-02-11 22:38 | CON ---
DATE OF CONSULTATION: 02/11/2018 REASON FOR CONSULTATION: Metastatic gastroesophageal junction adenocarcinoma. HISTORY: This patient was diagnosed with metastatic gastroesophageal junction carcinoma in 10/2013. He had metastasis to lung and liver. The patient had HER2 positive disease and he has been on Herce ptin based treatments. So far has received 3 different lines of chemotherapy. He was found to have developed brain metastasis in 12/2015 and was treated with whole-brain radiation therapy in December-January 2016. Most recently, he has been on maintenance chemotherapy with 5-FU and leucovorin by continuous infusion symptoms. The patient's CT scan of chest and abdomen has shown resolution of the meta stasis to lung and liver and I do not think he had any metastasis to abdominal lymph nodes on the las t CT scan of the abdomen. Since 10/2017, he has been on maintenance chemotherapy with leucovorin and continuous infusion 5-FU every 2 weeks and he also received Herceptin every 2 weeks. The last chemo therapy was in December. Subsequent to that, he developed seizure and was treated in hospital in [place]. There also he was treated for fracture of the right femur, which apparently developed following seiz ure. He has been in rehab facility most recently in [place]. The patient had been on Keppra, but he continues to have seizure off and on. He is admitted with another episode of seizure this time. MR I of the brain shows increase in size of the left frontoparietal lesion, which now measures 3.5 x 3.1 cm. There is also vasogenic edema and small hemorrhoids. There is 4 mm midline shift. The patient has been on dexamethasone. He was seen in the office last week and was started on Nystatin oral nupur pension for thrush. He was also seen by Dr. Cho who was considering SRS to the brain tumor. The p atient currently has considerable weakness in the right upper and lower extremity. He seems to under stand, but is unable to talk, but he is able to speak words, which do not form sentences and difficul t to understand. CURRENT MEDICATIONS: Fosphenytoin IV, hydralazine, labetalol, Keppra, Ativan, and Nystatin suspensio n. PHYSICAL EXAMINATION: GENERAL: The patient appears chronically sick. He was trying to feed himself at the time of this ex amination with a lot of difficulty getting food from plate to his mouth. VITAL SIGNS: Temperature 97.4, pulse 48, blood pressure 94/57. LYMPHATICS: There is no peripheral lymphadenopathy. CHEST: Unremarkable. HEART: Unremarkable. ABDOMEN: Unremarkable. EXTREMITIES: Without pedal edema. LABORATORY DATA: CBC showed WBC of 200, hemoglobin 10.2 and platelet count of 58,000. His platelet count was 100,000 two or three days ago in the office. Chemistry profile showed abnormal findings of total protein 4.7, albumin 2.2, globulin 2.5. 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 His current symptomatology seems to be related primar peter to the large metastatic disease in his left cerebrum. The patient has not been able to ambulate at least during the past 2-3 weeks, although he was able to walk with walker following a hip surgery. I had a lengthy discussion with his 2 children. They explained to me that the patient wanted to be DNR and the patient has a DNR on record in the office EMR. Accordingly, I will write DNR order in h is chart. Most likely, he will be a hospice candidate in very near future. There will be unlikely s [facility] in which he can receive additional treatment to the brain and possibly could receive ch emotherapy for systemic disease control. However, there is a higher likelihood that he will not be a ble to receive treatment towards his cancer and will have to be provided palliative care in hospice s [facility]. Thanks very much for allowing me to participate in this patient's care.
[2018-02-12] MEDS: Fosphenytoin Sodium 100 MG in Sodium Chloride 0.9% 50 ML IVPB SCH ×3 (03:31→19:52)
[2018-02-12] MEDS: Cefepime 2 GM in Sodium Chloride 0.9% 100 ML IVPB SCH (04:00)
[2018-02-12 04:11] LABS: #Lymphocytes 0.3 thou/uL (1.20-3.40); #Monocytes 0.2 thou/uL (0.11-0.59); #Neutrophils 10.7 thou/uL (1.40-6.50); %Eosinophils 0.2 % (0.0-10.0); %Lymphocytes 2.8 % (21.0-51.0); %Monocytes 1.7 % (0.0-10.0); %Neutrophils 95.4 % (42.0-75.0); Hemoglobin 9.5 g/dL (14.0-18.0); Mean Corpuscular HGB CONC 33.1 g/dL (32.0-36.0); Mean Corpuscular Hemoglobin 31.8 pg (27.0-31.0); Mean Corpuscular Volume 95.8 fL (78.0-98.0); Mean Platelet Volume 8.2 fL (7.4-10.4); Platelet Count 75 thou/uL (130-400); RBC Distribution Width 14.7 % (11.5-14.5); White Blood Cell (WBC) Count 11.2 thou/uL (4.8-10.8)
[2018-02-12] MEDS: Dexamethasone 4 mg/ml Vial SLOW IVP SCH ×3 (05:31→19:49)
--- NOTE | 2018-02-12 07:27 | PRG ---
DATE OF SERVICE: 02/12/2018 I saw Mr. Suero in the IMCU this morning. There is some concern about aspiration pneumonia bactere jayden and UTI. His neurological examinations remain stable since yesterday, however. I do not see any fevers recorded. His other vital signs have remained relatively stable with blood p ressures in the 90s-120s. As I entered the room and say his name, Mr. Suero opens his eyes. He sm cameron, he laughs a bit, but he has both receptive and expressive dysphasia. He attempts to say some w ords, but he cannot quite get them out. Occasionally he will follow commands, but most of the time h e mimics. He is moving all 4 extremities with purpose. He localizes very briskly. He attempts to m ove the bed sheets around, but he simply cannot communicate with the examiner. MR imaging was reviewed. There is some gradient echo dark signal around the edges of the lesion that was previously seen. The thickness of the lesion has increased, the size of the total diameter acro ss the thick shell then the cystic component in all directions is slightly larger than it was in December. There is some surrounding T2 signal change which has been present for quite some time. I discussed the case with Dr. Childress. If he wants to resume care of this patient whom he saw in his n eurosurgery clinic earlier this year and arrange for his stereotactic radiosurgery, I will let him ta ke over. If he wants me to continue I will. I will need to have a long discussion with the family about quality of life issues before attempting a surgery in the frontal operculum. For the time being, I think we can use steroids and Protonix. Hopefully, we can get him through his infectious process and make a safe surgical procedure happen if that is how his family wants to proce ed.
[2018-02-12] MEDS: Sodium Chloride 0.9% 1,000 ML IV SCH ×2 (07:45→17:51)
--- NOTE | 2018-02-12 09:11 | CT ---
CT CHEST AND ABDOMEN AND PELVIS WITH IV CONTRAST: INDICATIONS: History of metastatic disease to liver and lung from GE junction carcinoma. COMPARISON: Prior CT chest, abdomen, and pelvis dated 11/08/2017 and 05/23/2017. FINDINGS: There are new small bilateral pleural effusions, left greater than right. There is worsening air space consolidation within portions of the posterior medial segment of the lef t lower lobe, suspicious for pneumonia. There are some hazy ground glass and interstitial opacities involving both lower lobes, suspicious for a component of subsegmental volume loss. No pathologically enlarged lymph nodes are evident within the mediastinum, hilar, or axillary regions . There are coronary artery and thoracic aortic calcifications that are similar. Ectasia of the asc ending aorta is similar. Mild aneurysmal dilatation of the ascending aortic arch is stable, measurin g 3.7 cm. The ascending thoracic aorta measures 2.9 cm. There is some beam hardening artifact projecting over segment 5 and segment 8 of the right hepatic lo be. There is a contracted gallbladder with gallstones, which is stable. The adrenal glands, the verdin creas, the spleen, and the kidneys appear normal. No enlarged lymph nodes are evident. There is a moderate amount of retained stool within the colon. The appendix is not definitely identi fied. The small bowel is of normal caliber. No free fluid is evident. The bladder, rectum, and per irectal soft tissues are unremarkable appearing. There is mild bladder wall edema. There is instrumentation seen transfixing an ununited right intertrochanteric hip fracture. There is diffuse osteopenia. There are changes of osteonecrosis involving both femoral heads that stable fro m the prior exam. There is no evidence of subcortical collapse. There is thoracolumbar scoliosis. There is diffuse osteopenia. No definite acute osseous abnormality is demonstrated. IMPRESSION: 1. New area of air space consolidation within the posterior medial aspect of the left lower lobe is suspicious for an area of new pneumonia. This is in a region of prior bronchiectasis and scarring. CT followup is recommended to document resolution. 2. Bilateral pleural effusions and mild anasarca may reflect components of volume overload or mild c ongestive heart failure. 3. Interval instrumentation of an ununited right intertrochanteric hip fracture. Stable bilateral f emoral head osteonecrosis. POS: [facility]
[2018-02-12] MEDS: Fluticasone Propionate Nasal Spray 16 gm Bottle NASAL SCH (09:16)
[2018-02-12] MEDS: levETIRAcetam In NaCl (Iso-Os) 1,000 MG in Premix Bag 1 BAG IVPB SCH ×2 (09:17→21:35)
--- NOTE | 2018-02-12 10:28 | PDOC.PN ---
- Subjective Encounter Start Date: 02/12/18 Encounter Start Time: 09:00 Patient seen and examined. he is maintaining saturation well. No overnight events - Objective MAR Reviewed: Yes Vital Signs & Weight: Vital Signs (12 hours) Temp Pulse Resp BP Pulse Ox 02/12/18 08:02 97.4 F L 62 15 116/62 97 02/12/18 04:00 97.8 F 59 L 16 120/57 L 97 02/12/18 00:00 97.5 F L 53 L 12 113/65 95 I&O: 02/11/18 02/12/18 02/13/18 06:59 06:59 06:59 Intake Total 1349 1035 Output Total 600 400 Balance 749 635 Result Diagrams: 02/12/18 03:33 02/11/18 04:54 Radiology Reviewed by me: Yes (chest xray, CT abdomen ) EKG Reviewed by me: Yes (nsr) Phys Exam - Physical Examination Constitutional: NAD HEENT: PERRLA, moist MMs, sclera anicteric Neck: no JVD, supple Respiratory: no wheezing, no rales, no rhonchi Cardiovascular: RRR, no significant murmur, no rub Gastrointestinal: soft, non-tender, no distention, positive bowel sounds Musculoskeletal: no edema, pulses present Neurological: moves all 4 limbs Lymphatic: no nodes Psychiatric: normal affect Skin: no rash, normal turgor Dx/Plan (1) UTI (urinary tract infection) Status: Acute (2) Dysphasia Code(s): R47.02 - DYSPHASIA Status: Acute Comment: expressive aphasia/ dysphasia (3) Encephalopathy acute Code(s): G93.40 - ENCEPHALOPATHY, UNSPECIFIED Status: Acute (4) Hyponatremia Code(s): E87.1 - HYPO-OSMOLALITY AND HYPONATREMIA Status: Acute (5) Oropharyngeal dysphagia Code(s): R13.12 - DYSPHAGIA, OROPHARYNGEAL PHASE Status: Acute (6) Physical deconditioning Code(s): R53.81 - OTHER MALAISE Status: Acute (7) Right sided weakness Code(s): R53.1 - WEAKNESS Status: Acute Comment: improved (8) Sepsis Code(s): A41.9 - SEPSIS, UNSPECIFIED ORGANISM Status: Acute (9) BPH (benign prostatic hyperplasia) Code(s): N40.0 - BENIGN PROSTATIC HYPERPLASIA WITHOUT LOWER URINRY TRACT SYMP Status: Chronic (10) Esophageal cancer Status: Chronic Qualifiers: Malignant neoplasm of esophagus location: unspecified location Qualified Code(s): C15.9 - Malignant neoplasm of esophagus, unspecified Comment: stage IV (11) HTN (hypertension) Code(s): I10 - ESSENTIAL (PRIMARY) HYPERTENSION Status: Chronic (12) History of malignant neoplasm metastatic to brain Code(s): Z85.9 - PERSONAL HISTORY OF MALIGNANT NEOPLASM, UNSPECIFIED Status: Chronic (13) Seizure disorder Code(s): G40.909 - EPILEPSY, UNSP, NOT INTRACTABLE, WITHOUT STATUS EPILEPTICUS Status: Chronic (14) Dementia Code(s): F03.90 - UNSPECIFIED DEMENTIA WITHOUT BEHAVIORAL DISTURBANCE Status: Chronic - Plan cont current plan of care, continue antibiotics, respiratory therapy * medication reviewed as below * symptomatic treatment * continue cefepime * transfer to oncology * oncology and radiation oncology opinion noted * prognosis is poor. * neurosurgery following Review of Systems - Review of Systems Other: unable to review due to his level of cognitive status - Medications/Allergies Allergies/Adverse Reactions: Allergies Allergy/AdvReac Type Severity Reaction Status Date / Time Penicillins Allergy Verified 02/19/16 15:26 Medications: Current Medications Acetaminophen (Tylenol) 650 mg PO Q4H PRN PRN Reason: Headache/Fever or Pain Hydrocodone Bitart/Acetaminophen ([place] 5/325) 1 tab PO Q4H PRN PRN Reason: Moderate Pain (4-6) Al Hydroxide/Mg Hydroxide (Maalox) 30 ml PO Q6H PRN PRN Reason: Heartburn or Indigestion Artificial Tears (Tears Naturale) 0 drop EA EYE PRN PRN PRN Reason: Dry Eyes Last Admin: 02/11/18 21:00 Dose: 20 drop Bisacodyl (Dulcolax) 10 mg PO DAILY PRN PRN Reason: Constipation Clonidine (Catapres) 0.1 mg PO Q4H PRN PRN Reason: SBP GREATER THAN 160 Dexamethasone (Decadron) 4 mg SLOW IVP Q6HR [facility] Last Admin: 02/12/18 05:31 Dose: 4 mg Finasteride (Proscar) 5 mg PO DAILY [facility] Last Admin: 02/11/18 13:05 Dose: 5 mg Fluticasone Propionate (Flonase Nasal [place]) 0 gm NASAL DAILY [facility] Last Admin: 02/12/18 09:16 Dose: 1 spr Guaifenesin (Robitussin Sf) 200 mg PO Q4H PRN PRN Reason: Cough Hydralazine HCl (Apresoline) 10 mg SLOW IVP Q4H PRN PRN Reason: SBP GREATER THAN 160 Levetiracetam 1,000 mg/ Device 100 mls @ 200 mls/hr IVPB BID [facility] Last Admin: 02/12/18 09:17 Dose: 100 mls Sodium Chloride (Normal Saline 0.9%) 1,000 mls @ 100 mls/hr IV .Q10H [facility] Last Admin: 02/12/18 07:45 Dose: 1,000 mls Cefepime HCl 2 gm/ Sodium (Chloride) 100 mls @ 200 mls/hr IVPB 0500,1700 [facility] Last Admin: 02/12/18 04:00 Dose: 100 mls Fosphenytoin Sodium 100 mg/ (Sodium Chloride) 52 mls @ 104 mls/hr IVPB 0400, 1200,2000 [facility] Last Admin: 02/12/18 03:31 Dose: 52 mls Labetalol HCl (Normodyne) 20 mg SLOW IVP Q4H PRN PRN Reason: SBP GREATER THAN 160 Loperamide HCl (Imodium) 2 mg PO PRN PRN PRN Reason: Diarrhea/Loose Stools Loratadine (Claritin) 10 mg PO DAILYPRN PRN PRN Reason: Sinus Symptoms Lorazepam (Ativan) 2 mg SLOW IVP Q15MIN PRN PRN Reason: Seizures Magnesium Hydroxide (Milk Of Magnesium) 30 ml PO DAILYPRN PRN PRN Reason: Constipation Mineral Oil/White Petrolatum (Eucerin Cream) 0 gm TOP BIDPRN PRN PRN Reason: Dry Skin Nystatin (Nystatin 100,000 Units/Ml) 5 ml SSW QID PRN PRN Reason: Mouth Irritation Ondansetron HCl (Zofran Odt) 4 mg PO Q6H PRN PRN Reason: Nausea/Vomiting Ondansetron HCl (Zofran) 4 mg IVP Q6H PRN PRN Reason: Nausea/Vomiting Pantoprazole Sodium (Protonix) 40 mg IVP DAILY [facility] Last Admin: 02/11/18 09:35 Dose: 40 mg Saccharomyces Boulardii (Florastor) 250 mg PO DAILY [facility] Last Admin: 02/11/18 13:06 Dose: 250 mg Senna (Senokot) 2 tab PO HSPRN PRN PRN Reason: Constipation Sodium Chloride ([place] Nasal [place] 0.65%) 0 ml EA NARE QIDPRN PRN PRN Reason: Nasal Congestion Tamsulosin HCl (Flomax) 0.4 mg PO DAILY [facility] Last Admin: 02/11/18 13:06 Dose: 0.4 mg
[2018-02-12] MEDS: Pantoprazole 40 MG VIAL IVP SCH (14:34)
[2018-02-12] MEDS: Finasteride 5 MG TAB PO SCH (14:34)
[2018-02-12] MEDS: Tamsulosin HCl 0.4 MG CAP PO SCH (14:34)
[2018-02-12] MEDS: Saccharomyces boulardii 250 MG CAP PO SCH (14:34)
[2018-02-12] MEDS: Cefepime 2 GM, Admixture Fee 1 EACH in Sodium Chloride 0.9% 100 ML IVPB SCH (17:50)
[2018-02-13] MEDS: Dexamethasone 4 mg/ml Vial SLOW IVP SCH ×4 (01:47→19:50)
[2018-02-13] MEDS: Fosphenytoin Sodium 100 MG in Sodium Chloride 0.9% 50 ML IVPB SCH ×3 (04:18→19:50)
[2018-02-13] MEDS: Cefepime 2 GM, Admixture Fee 1 EACH in Sodium Chloride 0.9% 100 ML IVPB SCH (05:22)
[2018-02-13] MEDS: Sodium Chloride 0.9% 1,000 ML IV SCH ×2 (07:22→08:16)
--- NOTE | 2018-02-13 07:28 | PRG ---
DATE OF SERVICE: 02/13/2018 I saw Mr. Suero in the Oncology unit this morning. His family is still not around and I have been unable to speak with them in person during this admission. I have read the notes from yesterday and reviewed vital signs. There was a discussion with the family surrounding palliative care or hospice or chemoradiotherapy. I do not see a final decision has been made. Vitals overnight have been relatively stable. He is keeping his oxygen level up in spite of a presum ed pneumonia, and so he was transferred out of the intermediate care unit back to the Oncology floor. Mr. Suero is easily arousable. This morning, he opens his eyes, he smiles, he attempts to say wo rds, a few sounds come out, maybe one or two words, but he has both receptive and expressive dysphasi a still. He is purposeful with all 4 extremities. I do not see a lateralizing motor or sensory defi cit during my brief examination in bed. He can move his legs to antigravity. His arms are quite pur poseful. He adjusts himself in the bed and he rolls from side to side without any obvious neglect or obvious weakness. No new imaging studies to review. If Mr. Suero's family arrives, they want to speak with the Neurosurgical service, either Dr. Childress or I could fill that role for them, and I would like to discuss his management if they wanted to hear what surgery has to offer. We will continue to follow the case.
[2018-02-13] MEDS: Saccharomyces boulardii 250 MG CAP PO SCH (08:21)
[2018-02-13] MEDS: Fluticasone Propionate Nasal Spray 16 gm Bottle NASAL SCH (08:21)
[2018-02-13] MEDS: Tamsulosin HCl 0.4 MG CAP PO SCH (08:21)
[2018-02-13] MEDS: Finasteride 5 MG TAB PO SCH (08:21)
[2018-02-13] MEDS: levETIRAcetam In NaCl (Iso-Os) 1,000 MG in Premix Bag 1 BAG IVPB SCH ×2 (08:22→20:42)
[2018-02-13] MEDS: Pantoprazole 40 MG VIAL IVP SCH (08:25)
[2018-02-13] MEDS: cefTRIAXone\\ROCEPHIN 2 GM in Sodium Chloride 0.9% 100 ML IVPB SCH (09:17)
--- NOTE | 2018-02-13 10:23 | PDOC.PN ---
- Subjective Encounter Start Date: 02/13/18 Encounter Start Time: 07:00 pt has expressive aphasia, he gets restless due to that, he is npo due to dysphagia - Objective MAR Reviewed: Yes Vital Signs & Weight: Vital Signs (12 hours) Temp Pulse Resp BP Pulse Ox 02/13/18 08:10 98.0 F 63 18 125/58 L 94 L 02/13/18 03:55 98.6 F 51 L 18 128/66 94 L 02/13/18 00:00 98.1 F 52 L 16 113/58 L 94 L I&O: 02/12/18 02/13/18 02/14/18 06:59 06:59 06:59 Intake Total 1035 1351 Output Total 400 550 Balance 635 801 Result Diagrams: 02/12/18 03:33 02/11/18 04:54 Phys Exam - Physical Examination Constitutional: NAD HEENT: PERRLA, moist MMs, sclera anicteric Neck: no JVD, supple Respiratory: no wheezing, no rales, no rhonchi Cardiovascular: RRR, no significant murmur, no rub Gastrointestinal: soft, non-tender, no distention, positive bowel sounds Musculoskeletal: no edema, pulses present Neurological: moves all 4 limbs Lymphatic: no nodes Psychiatric: normal affect Skin: no rash, normal turgor Dx/Plan (1) UTI (urinary tract infection) Status: Acute (2) Dysphasia Code(s): R47.02 - DYSPHASIA Status: Acute Comment: expressive aphasia/ dysphasia (3) Encephalopathy acute Code(s): G93.40 - ENCEPHALOPATHY, UNSPECIFIED Status: Acute (4) Hyponatremia Code(s): E87.1 - HYPO-OSMOLALITY AND HYPONATREMIA Status: Acute (5) Oropharyngeal dysphagia Code(s): R13.12 - DYSPHAGIA, OROPHARYNGEAL PHASE Status: Acute (6) Physical deconditioning Code(s): R53.81 - OTHER MALAISE Status: Acute (7) Right sided weakness Code(s): R53.1 - WEAKNESS Status: Acute Comment: improved (8) Sepsis Code(s): A41.9 - SEPSIS, UNSPECIFIED ORGANISM Status: Acute (9) BPH (benign prostatic hyperplasia) Code(s): N40.0 - BENIGN PROSTATIC HYPERPLASIA WITHOUT LOWER URINRY TRACT SYMP Status: Chronic (10) Esophageal cancer Status: Chronic Qualifiers: Malignant neoplasm of esophagus location: unspecified location Qualified Code(s): C15.9 - Malignant neoplasm of esophagus, unspecified Comment: stage IV (11) HTN (hypertension) Code(s): I10 - ESSENTIAL (PRIMARY) HYPERTENSION Status: Chronic (12) History of malignant neoplasm metastatic to brain Code(s): Z85.9 - PERSONAL HISTORY OF MALIGNANT NEOPLASM, UNSPECIFIED Status: Chronic (13) Seizure disorder Code(s): G40.909 - EPILEPSY, UNSP, NOT INTRACTABLE, WITHOUT STATUS EPILEPTICUS Status: Chronic (14) Dementia Code(s): F03.90 - UNSPECIFIED DEMENTIA WITHOUT BEHAVIORAL DISTURBANCE Status: Chronic (15) Aspiration pneumonia Code(s): J69.0 - PNEUMONITIS DUE TO INHALATION OF FOOD AND VOMIT Status: Acute (16) Bacteremia due to Streptococcus Code(s): R78.81 - BACTEREMIA; B95.5 - UNSP STREPTOCOCCUS THE CAUSE OF DISEASES CLASSD ELSWHR Status: Acute (17) Sepsis due to Streptococcus agalactiae Code(s): A40.1 - SEPSIS DUE TO STREPTOCOCCUS, GROUP B Status: Acute - Plan cont current plan of care, plan discussed w/ family, continue antibiotics, social science instructor * i spoke with family that if he does not swallow safely then he may need peg tube * as per radiation oncology, radiation is not a option at this point * palliative care on case * i think we should incline towards hospice for this patient * i consulted dr donovan to decide about iv vs oral antibiotics * today i will change to iv rocephin instead of cefepime * i have discussed treatment plan to family and pt's nurse * medication reviewed as below * symptomatic treatment * prognosis is poor. Review of Systems - Review of Systems Other: not reliable with pt due to cognitive status - Medications/Allergies Allergies/Adverse Reactions: Allergies Allergy/AdvReac Type Severity Reaction Status Date / Time Penicillins Allergy Verified 02/19/16 15:26 Medications: Current Medications Acetaminophen (Tylenol) 650 mg PO Q4H PRN PRN Reason: Headache/Fever or Pain Hydrocodone Bitart/Acetaminophen ([place] 5/325) 1 tab PO Q4H PRN PRN Reason: Moderate Pain (4-6) Al Hydroxide/Mg Hydroxide (Maalox) 30 ml PO Q6H PRN PRN Reason: Heartburn or Indigestion Artificial Tears (Tears Naturale) 0 drop EA EYE PRN PRN PRN Reason: Dry Eyes Last Admin: 02/11/18 21:00 Dose: 20 drop Bisacodyl (Dulcolax) 10 mg PO DAILY PRN PRN Reason: Constipation Clonidine (Catapres) 0.1 mg PO Q4H PRN PRN Reason: SBP GREATER THAN 160 Dexamethasone (Decadron) 4 mg SLOW IVP 0200,0800,1400,2000 [facility] Last Admin: 02/13/18 08:25 Dose: 4 mg Finasteride (Proscar) 5 mg PO DAILY [facility] Last Admin: 02/13/18 08:21 Dose: Not Given Fluticasone Propionate (Flonase Nasal [place]) 0 gm NASAL DAILY [facility] Last Admin: 02/13/18 08:21 Dose: Not Given Guaifenesin (Robitussin Sf) 200 mg PO Q4H PRN PRN Reason: Cough Hydralazine HCl (Apresoline) 10 mg SLOW IVP Q4H PRN PRN Reason: SBP GREATER THAN 160 Levetiracetam 1,000 mg/ Device 100 mls @ 200 mls/hr IVPB BID [facility] Last Admin: 02/13/18 08:22 Dose: 100 mls Fosphenytoin Sodium 100 mg/ (Sodium Chloride) 52 mls @ 104 mls/hr IVPB 0400, 1200,2000 [facility] Last Admin: 02/13/18 04:18 Dose: 52 mls Ceftriaxone Sodium 2 gm/ (Sodium Chloride) 100 mls @ 200 mls/hr IVPB Q24HR [facility] Last Admin: 02/13/18 09:17 Dose: 100 mls Sodium Chloride (Normal Saline 0.9%) 1,000 mls @ 50 mls/hr IV .Q20H [facility] Last Admin: 02/13/18 08:16 Dose: 1,000 mls Labetalol HCl (Normodyne) 20 mg SLOW IVP Q4H PRN PRN Reason: SBP GREATER THAN 160 Loperamide HCl (Imodium) 2 mg PO PRN PRN PRN Reason: Diarrhea/Loose Stools Loratadine (Claritin) 10 mg PO DAILYPRN PRN PRN Reason: Sinus Symptoms Lorazepam (Ativan) 2 mg SLOW IVP Q15MIN PRN PRN Reason: Seizures Magnesium Hydroxide (Milk Of Magnesium) 30 ml PO DAILYPRN PRN PRN Reason: Constipation Mineral Oil/White Petrolatum (Eucerin Cream) 0 gm TOP BIDPRN PRN PRN Reason: Dry Skin Nystatin (Nystatin 100,000 Units/Ml) 5 ml SSW QID PRN PRN Reason: Mouth Irritation Ondansetron HCl (Zofran Odt) 4 mg PO Q6H PRN PRN Reason: Nausea/Vomiting Ondansetron HCl (Zofran) 4 mg IVP Q6H PRN PRN Reason: Nausea/Vomiting Pantoprazole Sodium (Protonix) 40 mg IVP DAILY [facility] Last Admin: 02/13/18 08:25 Dose: 40 mg Saccharomyces Boulardii (Florastor) 250 mg PO DAILY [facility] Last Admin: 02/13/18 08:21 Dose: Not Given Senna (Senokot) 2 tab PO HSPRN PRN PRN Reason: Constipation Sodium Chloride ([place] Nasal [place] 0.65%) 0 ml EA NARE QIDPRN PRN PRN Reason: Nasal Congestion Sodium Chloride (Flush - Normal Saline) 10 ml IVF Q12HR [facility] Last Admin: 02/13/18 08:26 Dose: 10 ml Sodium Chloride (Flush - Normal Saline) 10 ml IVF PRN PRN PRN Reason: Saline Flush Tamsulosin HCl (Flomax) 0.4 mg PO DAILY [facility] Last Admin: 02/13/18 08:21 Dose: Not Given
[2018-02-14] MEDS: Dexamethasone 4 mg/ml Vial SLOW IVP SCH ×4 (01:33→19:58)
[2018-02-14] MEDS: Sodium Chloride 0.9% 1,000 ML IV SCH (03:06)
[2018-02-14] MEDS: Fosphenytoin Sodium 100 MG in Sodium Chloride 0.9% 50 ML IVPB SCH ×3 (03:08→19:58)
[2018-02-14] MEDS: Finasteride 5 MG TAB PO SCH (09:03)
[2018-02-14] MEDS: Tamsulosin HCl 0.4 MG CAP PO SCH (09:03)
[2018-02-14] MEDS: Fluticasone Propionate Nasal Spray 16 gm Bottle NASAL SCH (09:04)
[2018-02-14] MEDS: Pantoprazole 40 MG VIAL IVP SCH (09:04)
[2018-02-14] MEDS: levETIRAcetam In NaCl (Iso-Os) 1,000 MG in Premix Bag 1 BAG IVPB SCH ×2 (09:04→21:07)
[2018-02-14] MEDS: Saccharomyces boulardii 250 MG CAP PO SCH (09:04)
[2018-02-14] MEDS: cefTRIAXone\\ROCEPHIN 2 GM in Sodium Chloride 0.9% 100 ML IVPB SCH (09:55)
--- NOTE | 2018-02-14 10:54 | PDOC.PN ---
- Subjective Encounter Start Date: 02/14/18 Encounter Start Time: 07:00 - Objective MAR Reviewed: Yes Vital Signs & Weight: Vital Signs (12 hours) Temp Pulse Resp BP Pulse Ox 02/14/18 08:00 97.3 F L 74 16 126/77 92 L 02/14/18 03:51 98 F 61 18 123/63 95 02/14/18 00:00 98 F 59 L 18 107/64 94 L Weight Admit Weight 156 lb Weight 156 lb I&O: 02/13/18 02/14/18 02/15/18 06:59 06:59 06:59 Intake Total 1351 Output Total 550 1075 Balance 801 -1075 Result Diagrams: 02/12/18 03:33 02/11/18 04:54 Radiology Reviewed by me: Yes (echo) Phys Exam - Physical Examination Constitutional: NAD HEENT: PERRLA, moist MMs, sclera anicteric Neck: no JVD, supple Respiratory: no wheezing, no rales, no rhonchi Cardiovascular: RRR, no significant murmur, no rub Gastrointestinal: soft, non-tender, no distention, positive bowel sounds Musculoskeletal: no edema, pulses present Neurological: moves all 4 limbs Lymphatic: no nodes Psychiatric: normal affect Skin: no rash, normal turgor Dx/Plan (1) UTI (urinary tract infection) Status: Acute (2) Dysphasia Code(s): R47.02 - DYSPHASIA Status: Acute Comment: expressive aphasia/ dysphasia (3) Encephalopathy acute Code(s): G93.40 - ENCEPHALOPATHY, UNSPECIFIED Status: Acute (4) Hyponatremia Code(s): E87.1 - HYPO-OSMOLALITY AND HYPONATREMIA Status: Acute (5) Oropharyngeal dysphagia Code(s): R13.12 - DYSPHAGIA, OROPHARYNGEAL PHASE Status: Acute (6) Physical deconditioning Code(s): R53.81 - OTHER MALAISE Status: Acute (7) Right sided weakness Code(s): R53.1 - WEAKNESS Status: Acute Comment: improved (8) Sepsis Code(s): A41.9 - SEPSIS, UNSPECIFIED ORGANISM Status: Acute (9) BPH (benign prostatic hyperplasia) Code(s): N40.0 - BENIGN PROSTATIC HYPERPLASIA WITHOUT LOWER URINRY TRACT SYMP Status: Chronic (10) Esophageal cancer Status: Chronic Qualifiers: Malignant neoplasm of esophagus location: unspecified location Qualified Code(s): C15.9 - Malignant neoplasm of esophagus, unspecified Comment: stage IV (11) HTN (hypertension) Code(s): I10 - ESSENTIAL (PRIMARY) HYPERTENSION Status: Chronic (12) History of malignant neoplasm metastatic to brain Code(s): Z85.9 - PERSONAL HISTORY OF MALIGNANT NEOPLASM, UNSPECIFIED Status: Chronic (13) Seizure disorder Code(s): G40.909 - EPILEPSY, UNSP, NOT INTRACTABLE, WITHOUT STATUS EPILEPTICUS Status: Chronic (14) Dementia Code(s): F03.90 - UNSPECIFIED DEMENTIA WITHOUT BEHAVIORAL DISTURBANCE Status: Chronic (15) Aspiration pneumonia Code(s): J69.0 - PNEUMONITIS DUE TO INHALATION OF FOOD AND VOMIT Status: Acute (16) Bacteremia due to Streptococcus Code(s): R78.81 - BACTEREMIA; B95.5 - UNSP STREPTOCOCCUS THE CAUSE OF DISEASES CLASSD ELSWHR Status: Acute (17) Sepsis due to Streptococcus agalactiae Code(s): A40.1 - SEPSIS DUE TO STREPTOCOCCUS, GROUP B Status: Acute - Plan cont current plan of care, continue antibiotics, social staff worker * ID to see today * no treatment plan for metastatic cancer * hospice is option at residential if able * medication reviewed as below * symptomatic treatment * continue rocephin Review of Systems - Review of Systems Other: unable to review due to cognitive deficit - Medications/Allergies Allergies/Adverse Reactions: Allergies Allergy/AdvReac Type Severity Reaction Status Date / Time Penicillins Allergy Verified 02/19/16 15:26 Medications: Current Medications Acetaminophen (Tylenol) 650 mg PO Q4H PRN PRN Reason: Headache/Fever or Pain Hydrocodone Bitart/Acetaminophen ([place] 5/325) 1 tab PO Q4H PRN PRN Reason: Moderate Pain (4-6) Al Hydroxide/Mg Hydroxide (Maalox) 30 ml PO Q6H PRN PRN Reason: Heartburn or Indigestion Artificial Tears (Tears Naturale) 0 drop EA EYE PRN PRN PRN Reason: Dry Eyes Last Admin: 02/11/18 21:00 Dose: 20 drop Bisacodyl (Dulcolax) 10 mg PO DAILY PRN PRN Reason: Constipation Clonidine (Catapres) 0.1 mg PO Q4H PRN PRN Reason: SBP GREATER THAN 160 Dexamethasone (Decadron) 4 mg SLOW IVP 0200,0800,1400,2000 [facility] Last Admin: 02/14/18 09:04 Dose: 4 mg Finasteride (Proscar) 5 mg PO DAILY [facility] Last Admin: 02/14/18 09:03 Dose: 5 mg Fluticasone Propionate (Flonase Nasal [place]) 0 gm NASAL DAILY [facility] Last Admin: 02/14/18 09:04 Dose: Not Given Guaifenesin (Robitussin Sf) 200 mg PO Q4H PRN PRN Reason: Cough Hydralazine HCl (Apresoline) 10 mg SLOW IVP Q4H PRN PRN Reason: SBP GREATER THAN 160 Levetiracetam 1,000 mg/ Device 100 mls @ 200 mls/hr IVPB BID [facility] Last Admin: 02/14/18 09:04 Dose: 100 mls Fosphenytoin Sodium 100 mg/ (Sodium Chloride) 52 mls @ 104 mls/hr IVPB 0400, 1200,2000 [facility] Last Admin: 02/14/18 03:08 Dose: 52 mls Ceftriaxone Sodium 2 gm/ (Sodium Chloride) 100 mls @ 200 mls/hr IVPB Q24HR [facility] Last Admin: 02/14/18 09:55 Dose: 100 mls Sodium Chloride (Normal Saline 0.9%) 1,000 mls @ 50 mls/hr IV .Q20H [facility] Last Admin: 02/14/18 03:06 Dose: 1,000 mls Labetalol HCl (Normodyne) 20 mg SLOW IVP Q4H PRN PRN Reason: SBP GREATER THAN 160 Loperamide HCl (Imodium) 2 mg PO PRN PRN PRN Reason: Diarrhea/Loose Stools Loratadine (Claritin) 10 mg PO DAILYPRN PRN PRN Reason: Sinus Symptoms Lorazepam (Ativan) 2 mg SLOW IVP Q15MIN PRN PRN Reason: Seizures Magnesium Hydroxide (Milk Of Magnesium) 30 ml PO DAILYPRN PRN PRN Reason: Constipation Mineral Oil/White Petrolatum (Eucerin Cream) 0 gm TOP BIDPRN PRN PRN Reason: Dry Skin Nystatin (Nystatin 100,000 Units/Ml) 5 ml SSW QID PRN PRN Reason: Mouth Irritation Ondansetron HCl (Zofran Odt) 4 mg PO Q6H PRN PRN Reason: Nausea/Vomiting Ondansetron HCl (Zofran) 4 mg IVP Q6H PRN PRN Reason: Nausea/Vomiting Pantoprazole Sodium (Protonix) 40 mg IVP DAILY [facility] Last Admin: 02/14/18 09:04 Dose: 40 mg Saccharomyces Boulardii (Florastor) 250 mg PO DAILY [facility] Last Admin: 02/14/18 09:04 Dose: 250 mg Senna (Senokot) 2 tab PO HSPRN PRN PRN Reason: Constipation Sodium Chloride ([place] Nasal [place] 0.65%) 0 ml EA NARE QIDPRN PRN PRN Reason: Nasal Congestion Sodium Chloride (Flush - Normal Saline) 10 ml IVF Q12HR [facility] Last Admin: 02/14/18 09:04 Dose: 10 ml Sodium Chloride (Flush - Normal Saline) 10 ml IVF PRN PRN PRN Reason: Saline Flush Tamsulosin HCl (Flomax) 0.4 mg PO DAILY [facility] Last Admin: 02/14/18 09:03 Dose: 0.4 mg
--- NOTE | 2018-02-14 14:12 | CON ---
DATE OF CONSULTATION: 02/14/2018 REASON FOR CONSULTATION: Bacteremia. 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 The patient had a fracture of the right femur and now the MRI shows the enlargement of the left fron toparietal lesion with vasogenic edema. He has had a DNR order established and as per Dr. Hamilton's opinion, he would be a hospice candidate very soon. He was evaluated by Neurosurgery and Dr. Grace int has discussed options with the family. The patient has been identified with group B strep bacter emia, probably secondary to urinary tract. Currently, Mr. Suero is receiving IV ceftriaxone. He i s awake. He has got quite significant expressive dysphasia and although he does understand some comm ands and will answer simple questions with yes and no. Has had some headaches, no visual symptoms, n o sore throat, odynophagia, dysphagia, no dyspnea or chest pain, no abdominal pain, unclear about his voiding ability. 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 PAST SURGICAL HISTORY: MediPort placement, recent right femur fracture which was repaired. ALLERGIES: PENICILLIN. MEDICATIONS: Currently on Tylenol, Otto, Maalox, Dulcolax, ceftriaxone, clonidine, Decadron, Prosca r, fluticasone, fosphenytoin, Keppra, magnesium, ondansetron, Saccharomyces. PHYSICAL EXAMINATION: VITAL SIGNS: T-max 98, it is currently 97.3. BP 120/77, pulse 74, respirations 16, O2 sat 92% -95%. GENERAL: Appears chronically ill. He has a port right subclavian location which is not accessed at this time. He does not have a Garcia catheter. Areas of bruising in the lateral aspect of the right lower extremity noted, in the suprapubic region as well, a little bit of bruising and in the gluteal region and chest wall. This is probably related to fall episodes. No lymphadenopathy. Alopecia. HEENT: Ocular movements conjugate. Sclerae white. Conjunctivae normal. Nasal passages patent. Or al cavity with some food particles, otherwise moist. Numerous teeth in place with some decay. NECK: Supple, jugular vein distention. LUNGS: With symmetric clear breath sounds. HEART: S1, S2, regular rate without murmurs. ABDOMEN: Not distended, does not appear tender except the suprapubic area where there might be some bladder distention. EXTREMITIES: No joint inflammatory activity. Pulses 1+ in dorsalis pedis. He is able to move extre mities on command. NEUROLOGIC: He is awake, quite significant expressive dysphasia, which makes communication difficult . Could not ask more detailed questions regarding his cognitive ability. LABORATORY DATA: White cell count is 9.2 and now 11.2, hemoglobin 9.5, platelets 75,000. Sodium 133 , creatinine 0.59. Liver profile normal. Albumin 2.2, prolactin 19. TSH 0.6. Urinalysis with 0-3 WBCs. Keppra level 8.7. Microbiology group B strep from urine as well as 2 sets of blood cultures. Urine culture greater than 100,000 CFUs. Reports include an echocardiogram with moderate MR. EF 60-65% and a chest, abdomen, and pelvis CT wi th airspace consolidation posterior medial aspect of left lower lobe and region of bronchiectasis and scarring, pleural effusions and instrumentation of ununited right intertrochanteric hip fracture, fe moral head osteonecrosis and mets to liver and lung as noted before. ASSESSMENT: 1. Metastatic cancer from GE junction to lungs, liver and brain. 2. Urinary tract infection with bacteremia secondary to group B strep. DISCUSSION: Differential diagnosis includes an invasive UTI possibly associated with urinary retenti on, colonization of the port is a risk in this kind of scenario. Colonization of the right hip fract ured site where there instrumentation is also a concern. Management ideally with IV antimicrobial th erapy for approximately 2 weeks and then conversion to oral medication. In his case in view of the p oor prognosis, if he is converted to palliative care, then I would consider earlier transition to ora l amoxicillin for discharge planning. Check postvoid residual to verify that there is no evidence of urinary retention.
[2018-02-15] MEDS: Sodium Chloride 0.9% 1,000 ML IV SCH (01:07)
[2018-02-15] MEDS: Dexamethasone 4 mg/ml Vial SLOW IVP SCH ×3 (01:58→15:44)
[2018-02-15] MEDS: Fosphenytoin Sodium 100 MG in Sodium Chloride 0.9% 50 ML IVPB SCH ×2 (04:09→15:45)
[2018-02-15] MEDS: levETIRAcetam In NaCl (Iso-Os) 1,000 MG in Premix Bag 1 BAG IVPB SCH (07:53)
[2018-02-15 08:34] VITALS: BP 136/72; TEMP 98
[2018-02-15] MEDS ORDERED: Heparin 1,000 UNITS/ML VIAL ONE (10:00)
[2018-02-15] MEDS: cefTRIAXone\\ROCEPHIN 2 GM in Sodium Chloride 0.9% 100 ML IVPB SCH (10:02)
[2018-02-15] MEDS: Pantoprazole 40 MG VIAL IVP SCH (10:02)
[2018-02-15] MEDS: Fluticasone Propionate Nasal Spray 16 gm Bottle NASAL SCH (10:02)
[2018-02-15] MEDS: Finasteride 5 MG TAB PO SCH (10:03)
[2018-02-15] MEDS: Saccharomyces boulardii 250 MG CAP PO SCH (10:03)
[2018-02-15] MEDS: Tamsulosin HCl 0.4 MG CAP PO SCH (10:03)
--- NOTE | 2018-02-15 11:31 | PDOC.PN ---
- Subjective Encounter Start Date: 02/15/18 Encounter Start Time: 07:10 Patient seen and examined. No new complaints. No overnight events - Objective MAR Reviewed: Yes Vital Signs & Weight: Vital Signs (12 hours) Temp Pulse Resp BP Pulse Ox 02/15/18 08:00 98.0 F 62 12 136/72 97 Weight Admit Weight 156 lb Weight 156 lb I&O: 02/14/18 02/15/18 02/16/18 06:59 06:59 06:59 Intake Total 120 Output Total 7826 7135 Balance -8801 -1839 Result Diagrams: 02/12/18 03:33 02/11/18 04:54 Phys Exam - Physical Examination Constitutional: NAD HEENT: PERRLA, moist MMs, sclera anicteric Neck: no JVD, supple Respiratory: no wheezing, no rales, no rhonchi Cardiovascular: RRR, no significant murmur, no rub Gastrointestinal: soft, non-tender, no distention, positive bowel sounds Musculoskeletal: no edema, pulses present Neurological: moves all 4 limbs Lymphatic: no nodes Psychiatric: normal affect Skin: no rash Dx/Plan (1) UTI (urinary tract infection) Status: Acute (2) Dysphasia Code(s): R47.02 - DYSPHASIA Status: Acute Comment: expressive aphasia/ dysphasia (3) Encephalopathy acute Code(s): G93.40 - ENCEPHALOPATHY, UNSPECIFIED Status: Acute (4) Hyponatremia Code(s): E87.1 - HYPO-OSMOLALITY AND HYPONATREMIA Status: Acute (5) Oropharyngeal dysphagia Code(s): R13.12 - DYSPHAGIA, OROPHARYNGEAL PHASE Status: Acute (6) Physical deconditioning Code(s): R53.81 - OTHER MALAISE Status: Acute (7) Right sided weakness Code(s): R53.1 - WEAKNESS Status: Acute Comment: improved (8) Sepsis Code(s): A41.9 - SEPSIS, UNSPECIFIED ORGANISM Status: Acute (9) BPH (benign prostatic hyperplasia) Code(s): N40.0 - BENIGN PROSTATIC HYPERPLASIA WITHOUT LOWER URINRY TRACT SYMP Status: Chronic (10) Esophageal cancer Status: Chronic Qualifiers: Malignant neoplasm of esophagus location: unspecified location Qualified Code(s): C15.9 - Malignant neoplasm of esophagus, unspecified Comment: stage IV (11) HTN (hypertension) Code(s): I10 - ESSENTIAL (PRIMARY) HYPERTENSION Status: Chronic (12) History of malignant neoplasm metastatic to brain Code(s): Z85.9 - PERSONAL HISTORY OF MALIGNANT NEOPLASM, UNSPECIFIED Status: Chronic (13) Seizure disorder Code(s): G40.909 - EPILEPSY, UNSP, NOT INTRACTABLE, WITHOUT STATUS EPILEPTICUS Status: Chronic (14) Dementia Code(s): F03.90 - UNSPECIFIED DEMENTIA WITHOUT BEHAVIORAL DISTURBANCE Status: Chronic (15) Aspiration pneumonia Code(s): J69.0 - PNEUMONITIS DUE TO INHALATION OF FOOD AND VOMIT Status: Acute (16) Bacteremia due to Streptococcus Code(s): R78.81 - BACTEREMIA; B95.5 - UNSP STREPTOCOCCUS THE CAUSE OF DISEASES CLASSD ELSWHR Status: Acute (17) Sepsis due to Streptococcus agalactiae Code(s): A40.1 - SEPSIS DUE TO STREPTOCOCCUS, GROUP B Status: Acute (18) Acute urinary retention Code(s): R33.8 - OTHER RETENTION OF URINE Status: Acute - Plan cont current plan of care, cho catheter, continue antibiotics, PT/OT, social sciences chair * [facility] decided about [facility] * so he will need picc line * he needs 2 week iv rocephin and then oral keflex * medication reviewed as below * symptomatic treatment. * he will need cho at [facility] Review of Systems - Review of Systems Other: unable to review due to dementia and expressive aphasia - Medications/Allergies Allergies/Adverse Reactions: Allergies Allergy/AdvReac Type Severity Reaction Status Date / Time Penicillins Allergy Verified 02/19/16 15:26 Medications: Current Medications Acetaminophen (Tylenol) 650 mg PO Q4H PRN PRN Reason: Headache/Fever or Pain Last Admin: 02/14/18 13:49 Dose: 650 mg Hydrocodone Bitart/Acetaminophen ([place] 5/325) 1 tab PO Q4H PRN PRN Reason: Moderate Pain (4-6) Al Hydroxide/Mg Hydroxide (Maalox) 30 ml PO Q6H PRN PRN Reason: Heartburn or Indigestion Artificial Tears (Tears Naturale) 0 drop EA EYE PRN PRN PRN Reason: Dry Eyes Last Admin: 02/11/18 21:00 Dose: 20 drop Bisacodyl (Dulcolax) 10 mg PO DAILY PRN PRN Reason: Constipation Clonidine (Catapres) 0.1 mg PO Q4H PRN PRN Reason: SBP GREATER THAN 160 Dexamethasone (Decadron) 4 mg SLOW IVP 0200,0800,1400,2000 [facility] Last Admin: 02/15/18 07:53 Dose: 4 mg Finasteride (Proscar) 5 mg PO DAILY [facility] Last Admin: 02/15/18 10:03 Dose: 5 mg Fluticasone Propionate (Flonase Nasal [place]) 0 gm NASAL DAILY [facility] Last Admin: 02/15/18 10:02 Dose: 2 spr Guaifenesin (Robitussin Sf) 200 mg PO Q4H PRN PRN Reason: Cough Hydralazine HCl (Apresoline) 10 mg SLOW IVP Q4H PRN PRN Reason: SBP GREATER THAN 160 Levetiracetam 1,000 mg/ Device 100 mls @ 200 mls/hr IVPB BID [facility] Last Admin: 02/15/18 07:53 Dose: 100 mls Fosphenytoin Sodium 100 mg/ (Sodium Chloride) 52 mls @ 104 mls/hr IVPB 0400, 1200,2000 [facility] Last Admin: 02/15/18 04:09 Dose: 52 mls Ceftriaxone Sodium 2 gm/ (Sodium Chloride) 100 mls @ 200 mls/hr IVPB Q24HR [facility] Last Admin: 02/15/18 10:02 Dose: 100 mls Sodium Chloride (Normal Saline 0.9%) 1,000 mls @ 50 mls/hr IV .Q20H [facility] Last Admin: 02/15/18 01:07 Dose: 1,000 mls Labetalol HCl (Normodyne) 20 mg SLOW IVP Q4H PRN PRN Reason: SBP GREATER THAN 160 Loperamide HCl (Imodium) 2 mg PO PRN PRN PRN Reason: Diarrhea/Loose Stools Loratadine (Claritin) 10 mg PO DAILYPRN PRN PRN Reason: Sinus Symptoms Lorazepam (Ativan) 2 mg SLOW IVP Q15MIN PRN PRN Reason: Seizures Magnesium Hydroxide (Milk Of Magnesium) 30 ml PO DAILYPRN PRN PRN Reason: Constipation Mineral Oil/White Petrolatum (Eucerin Cream) 0 gm TOP BIDPRN PRN PRN Reason: Dry Skin Nystatin (Nystatin 100,000 Units/Ml) 5 ml SSW QID PRN PRN Reason: Mouth Irritation Ondansetron HCl (Zofran Odt) 4 mg PO Q6H PRN PRN Reason: Nausea/Vomiting Ondansetron HCl (Zofran) 4 mg IVP Q6H PRN PRN Reason: Nausea/Vomiting Pantoprazole Sodium (Protonix) 40 mg IVP DAILY [facility] Last Admin: 02/15/18 10:02 Dose: 40 mg Saccharomyces Boulardii (Florastor) 250 mg PO DAILY [facility] Last Admin: 02/15/18 10:03 Dose: 250 mg Senna (Senokot) 2 tab PO HSPRN PRN PRN Reason: Constipation Sodium Chloride ([place] Nasal [place] 0.65%) 0 ml EA NARE QIDPRN PRN PRN Reason: Nasal Congestion Sodium Chloride (Flush - Normal Saline) 10 ml IVF Q12HR [facility] Last Admin: 02/15/18 07:53 Dose: 10 ml Sodium Chloride (Flush - Normal Saline) 10 ml IVF PRN PRN PRN Reason: Saline Flush Tamsulosin HCl (Flomax) 0.4 mg PO DAILY [facility] Last Admin: 02/15/18 10:03 Dose: 0.4 mg
--- NOTE | 2018-02-15 16:05 | DIS ---
DATE OF ADMISSION: 02/10/2018 DATE OF DISCHARGE: 02/15/2018 PRIMARY CARE PHYSICIAN: Dr. Pop Dawson DISCHARGE DISPOSITION: [facility]. PRIMARY DISCHARGE DIAGNOSES: Acute urinary retention, urinary tract infection, aspiration pneumonia, bacteremia due to Streptococcus, acute encephalopathy, oropharyngeal dysphagia on modified diet, hyp onatremia due to dehydration, right-sided weakness resolved due to metastasis, sepsis due to Streptoc occus agalactiae, focal seizure on admission. SECONDARY DISCHARGE DIAGNOSES: Seizure disorder, hypertension, history of esophageal cancer with met astasis, dementia, benign enlargement of prostate, oropharyngeal dysphagia, expressive aphasia. PRIMARY PROCEDURE/OPERATION: PICC line. RADIOLOGICAL INVESTIGATION: MRI brain showed metastasis. Chest x-ray showed pneumonia. Chest, abdo men and pelvis CT scan showed no malignant process. Echocardiography showed normal EF. SIGNIFICANT LABORATORY DATA: WBC 11.2, hemoglobin 9.5, platelets 75,000. Sodium 133, potassium 4.8, BUN 24, creatinine 0.59, calcium 7.8, AST 13, ALT 44, alkaline phosphatase is 140, albumin 2.2. TSH 0.66. Prolactin 19.03. Urinalysis suggestive of UTI. Blood culture positive for Streptococcus aga lactiae B. Urine culture also positive for Streptococcus agalactiae B. Blood culture was also posit rafael for Streptococcus agalactiae B. DISCHARGE MEDICATIONS: Rocephin gram IV daily for 2 weeks, then Keflex 500 mg p.o. b.i.d. for one mo nth; Artificial Tears as directed; Dulcolax 10 mg p.o. daily p.r.n.; Decadron 4 mg p.o. t.i.d.; Pros car 5 mg p.o. daily; Flonase nasal spray as directed; Keppra 1000 mg p.o. b.i.d.; Nystatin 5 mL swish and swallow q.i.d. p.r.n.; Protonix 40 mg p.o. daily; Dilantin 100 mg p.o. t.i.d.; Florastor 250 mg p.o. daily; Flomax 0.4 mg p.o. daily. CONTRAINDICATIONS: None. CODE STATUS: DNR. INPATIENT CONSULTANTS: Dr. Jimenez was consulted for brain mets. Dr. Clinton Ríos was consulted for seizure disorder. Dr. Melgar was consulted for bacteremia. Dr. Yin was consulted for meta static cancer. Dr. Kalpesh Cho was consulted for consideration of radiation therapy. TEST RESULTS PENDING ON DISCHARGE: None. ALLERGIES: PENICILLIN. DISCHARGE PLAN: Post hospital, the patient is planned for discharge to [facility] where he will finish IV antibiotic therapy and eventually this patient will need hospice at half-way. HOSPITAL COURSE: A 77-year-old male who was living at [facility]. He has already known hi story of metastatic esophageal cancer with brain mets and he has seizure disorder. The patient was presented to [facility] from half-way for focal seizure and altered m ental status. He was found with metastatic brain cancer and that is why he was transferred to [facility]. We admitted this patient to stroke floor. Neurosurgery was consulted from the ER and they recommende d admission to medical team. This patient was not a good candidate for any kind of intervention. At stroke floor, patient developed aspiration after food and that is why he required IMCU transfer. Patient was treated with Decadron. His seizure was controlled with KeJanna barcenasantijim and Neurology al so saw this patient. The patient also had acute urinary retention and that was related with urinary tract infection. Yusra ent's blood culture was also positive for Streptococcus agalactiae B and based on culture result, he consulted Dr. Melgar and Dr. Melgar recommended to continue IV antibiotic therapy for 2 more weeks. Oncology recommended that this patient should go for hospice. Radiation Oncology also agreed with th e same decision. Neurosurgeon was not able to do any procedure on him. While in hospital, his seizu re remained controlled. Regarding oropharyngeal dysphagia, he was on modified diet. He has expressive aphasia and that is wh y he is not able to communicate well. Patient was DNR that was discussed during the hospitalization. This patient was planned for going to hospice at half-way, but unfortunately family member cannot fit for hospice at half-way and he cannot go back to home and that is why they decided to let him go to snf home for IV a ntibiotic therapy and in future, they we will consider hospice therapy. At [facility], they cannot accept MediPort and that is why we have to do PICC line and toda y PICC line is done. Patient will finish 2 weeks of IV antibiotic therapy there and then oral Keflex as per ID recommendation. We also did CT chest, abdomen, and pelvis that were negative for any othe r malignancy. Echocardiography was unremarkable. Patient has significant physical deconditioning. The patient is seen and examined at bedside today. Please see my progress note from today for furthe r detail. Paperwork for discharge done. Discharge medication reconciliation done. Total time spent on discharge day 31 minutes.
--- NOTE | 2018-02-15 16:41 | SPC ---
LEFT UPPER EXTREMITY PICC LINE INSERTION: 02/15/18 HISTORY: Patient in need of IV antibiotics and bladder infection. Fluoroscopically guided left upper extremity PICC line insertion. RADIATION DOSIMETRY: 3 minutes of fluoroscopy, DAP of 2.9 Gy*cm2. Informed consent was obtained from the patient. The left upper extremity brachial vein was localized using fluoroscopy and some intravenous contrast. The overlying skin was prepped and draped in the usu al sterile manner. 1% lidocaine solution was used to anesthetize the overlying soft tissues. The left brachial vein as accessed. An 0.018 wire was introduced. The track was dilated using a peel away she ath and dilator. A double lumen 5 Samoan PICC line was cut to 44 cm and placed over the wire and thro ugh the peel away sheath into the SVC/right atrial junction. IMPRESSION: Successful placement of a left upper extremity PICC line. POS: VINOD
== END 2018-02-15 19:01 | DRG 871 ==
LOC: ERS 12:33 → 2SE 17:40 → IMCU/EMU 02-11 18:38 → ONC 02-12 15:56
PROVIDERS: ADMIT Internal Medicine; ATTEND Internal Medicine
PROC: 02HV33Z Insertion of Infusion Device into Superior Vena Cava, Percutaneous Approach (ICD-10-PCS; principal; 2018-02-15)
DX: A40.1 Sepsis due to streptococcus, group B (principal); G93.40 Encephalopathy, unspecified; I60.9 Nontraumatic subarachnoid hemorrhage, unspecified; J69.0 Pneumonitis due to inhalation of food and vomit; C79.31 Secondary malignant neoplasm of brain; G81.91 Hemiplegia, unspecified affecting right dominant side; E87.1 Hypo-osmolality and hyponatremia; N39.0 Urinary tract infection, site not specified; C16.0 Malignant neoplasm of cardia; C78.7 Secondary malignant neoplasm of liver and intrahepatic bile duct; C78.00 Secondary malignant neoplasm of unspecified lung; R47.01 Aphasia; Z66 Do not resuscitate; I10 Essential (primary) hypertension; G40.909 Epilepsy, unspecified, not intractable, without status epilepticus; R13.12 Dysphagia, oropharyngeal phase; R47.02 Dysphasia; F03.90 Unspecified dementia, unspecified severity, without behavioral disturbance, psychotic disturbance, mood disturbance, and anxiety; R40.2422 Glasgow coma scale score 9-12, at arrival to emergency department; R29.704 NIHSS score 4; E86.0 Dehydration; N40.1 Benign prostatic hyperplasia with lower urinary tract symptoms; R33.8 Other retention of urine; Z87.891 Personal history of nicotine dependence; Z88.0 Allergy status to penicillin
CPT/HCPCS: 36415; 36569; 51701; 70553; 71045; 71260; 74177; 80053; 80177; 81003; 81015; 82248; 82378; 83605; 83615; 83735; 84100; 84146; 84443; 84550; 85025; 87040; 87077; 87086; 87149; 87186; 93005; 93306; 96361; 96374; A4216; C1751; C9113; G8978-GP-CL; G8979-GP-CJ; G8996-GN-CJ; G8996-GN-CK; G8996-GN-CM; G8997-GN-CJ; G8997-GN-CK; J0692; J0696; J1100; J1642; J1644; J1953; J7050; Q2009

== ENCOUNTER 2018-02-21 19:08 | Observation (INO) | payer MEDICARE, BC ==
[2018-02-21] MEDS ORDERED: Lorazepam 2 MG/ML VIAL SLOW IVP PRN (22:00)
[2018-02-21] MEDS ORDERED: Acetaminophen 325 MG TAB PO PRN (22:00)
[2018-02-21 22:25] VITALS: BMI 22.6
[2018-02-22] MEDS ORDERED: Ondansetron ODT 4 MG TAB PO PRN (08:25)
[2018-02-22] MEDS ORDERED: Lorazepam 2 MG/ML VIAL SLOW IVP PRN (08:25)
[2018-02-22] MEDS ORDERED: Acetaminophen 325 MG TAB PO PRN (08:25)
--- NOTE | 2018-02-22 08:32 | HP ---
PRIMARY CARE PROVIDER: Dr. Pop Dawson CHIEF COMPLAINT: The patient referred to the [facility] by [facility] after transfer from [facility] Emergency Room. HISTORY OF PRESENT ILLNESS: The patient in [facility] referred to the emergency room after a seiz ure. He has a history of seizure disorder from a brain mass, on anti-seizure medications. He is cur rently awake and alert. He has some difficulty with speech. The old chart suggests he has an expres sive and receptive aphasia. He followed directions easily. He stated he did not feel bad, but he rojas d difficulty answering specific questions any more than that. PAST MEDICAL HISTORY: Quite significant. He has esophageal CA with a large left lateral frontal lob e complex brain mass with evidence of hemorrhage as well as a right lower cerebellar lesion and a rig ht upper lateral frontal lobe lesion. He has had chemotherapy. Past medical history includes hypert ension, senile dementia, history of a cerebrovascular accident in the past, oropharyngeal dysphagia, history of UTI, recent fracture of right femur requiring surgery, benign prostatic enlargement. PAST SURGICAL HISTORY: MediPort placement, repair of right femur fracture C-spine surgery. ALLERGIES: PENICILLIN. MEDICATIONS: He has been on oral antibiotics 500 mg q.12 cephalexin, Keppra 1000 mg twice a day, Esequiel max 0.4 mg a day, Florastor 250 mg a day, Dilantin 100 mg t.i.d., Protonix 40 mg a day, Nystatin 100, 000 units per mL swish and swallow q.i.d., Proscar 5 mg a day, Decadron 4 mg t.i.d. CODE STATUS: He is currently DNR. SOCIAL HISTORY: No tobacco, no alcohol. FAMILY HISTORY: His father had coronary artery disease. REVIEW OF SYSTEMS: Really not obtainable from this patient. His speech is not adequate to understan d. PHYSICAL EXAMINATION: GENERAL: Alert, follows directions. VITAL SIGNS: Blood pressure 122/64, respirations 16, pulse 62, temperature 98.1. HEENT: Pupils equal and round. Extraocular movements were grossly intact. Sclerae white. Tympanic membranes are clear. Nose is clear. Oral mucous membranes are wet. NECK: No jugular venous distention, adenopathy or thyromegaly. CHEST: Grossly clear to auscultation and percussion. HEART: Irregular rate and rhythm with no murmurs or gallops. ABDOMEN: Soft, bowel sounds are normal. There is no hepatosplenomegaly, no mass, no rebound. EXTREMITIES: Reveal no cyanosis, clubbing or edema. PULSES: Carotid, radial, femoral, and dorsalis pedis pulses were palpable and symmetric. SKIN: Warm and dry with some minor ecchymoses. HEME/LYMPH: Reveal no palpable lymph nodes in axilla, inguinal or cervical area. He had no petechia l rash. NEUROLOGIC: Moves all extremities. Cranial nerves II-XII grossly intact. Strength is grossly symme tric; however, he is clumsy in his right arm on [id number]. ADMITTING DIAGNOSES: 1. Seizure disorder with breakthrough seizures. 2. Large brain mass. 3. Esophageal cancer metastatic. 4. Hypertension. 5. Benign prostatic hypertrophy. 6. Lactic acidosis. LABORATORY: There is laboratory sent from [facility]. His urinalysis was really unremarkable. Creatin ine 0.66, BUN 12, blood sugar 116. Sodium 136, potassium 4.2. Liver functions were test unremarkabl e. Lactic acid was 5. CBC 9.7 white cells. Hemoglobin 10.9, platelet count 118,000. He had the aforementioned left cerebral hemispheric mass with surrounding edema consistent with previ ous ones. PLAN: Family is 5-10 minutes out. A plan will be developed. In the meantime, he will be continued on his chronic medicines, lorazepam will be continued for breakthrough seizures. The most significan t discussion should be hospice status and this will be discussed with the family when they arrive.
[2018-02-22 09:50] LABS: ALT (SGPT) 62 U/L (8-55); AST (SGOT) 31 U/L (5-34); Albumin 2.1 g/dL (3.4-4.8); Alkaline Phosphatase 167 U/L (40-150); Anion Gap 8 mmol/L (10-20); BUN (Urea Nitrogen) 10 mg/dL (8.4-25.7); Bilirubin, Total 0.4 mg/dL (0.2-1.2); Calc. Creatinine Clearance 117 mL/min (70-130); Calcium 7.9 mg/dL (7.8-10.44); Carbon Dioxide 28 mmol/L (23-31); Chloride 103 mmol/L (98-107); Estimated GFR-MDRD Greater than 90; Globulin 2.6 g/dL (2.4-3.5); Glucose 75 mg/dL (83-110); Potassium 3.3 mmol/L (3.5-5.1); Protein, Total 4.7 g/dL (5.8-8.1); Sodium 136 mmol/L (136-145)
[2018-02-22] MEDS: Saccharomyces boulardii 250 MG CAP PO SCH (09:50)
[2018-02-22] MEDS: Tamsulosin HCl 0.4 MG CAP PO SCH (09:53)
[2018-02-22] MEDS: Finasteride 5 MG TAB PO SCH (09:53)
[2018-02-22] MEDS: levETIRAcetam 500 MG TAB PO SCH ×2 (09:53→21:05)
[2018-02-22] MEDS: Dexamethasone 4 MG TAB PO SCH ×3 (09:53→21:06)
[2018-02-22 11:24] LABS: Bilirubin Negative (Negative); Blood, Urine Negative (Negative); Clarity CLEAR (Clear); Glucose, Urine (Dipstick) Negative (Negative); Leukocyte Negative (Negative); Nitrite Negative (Negative); Protein, Urine (Dipstick) Negative (Neg-Trace); Specific Gravity, Urine 1.007 (1.002-1.036); Urobilinogen 0.2 mg/dL (0.2-1.0)
[2018-02-22 11:28] LABS: Bacteria/HPF None Seen HPF (None Seen); Hyaline Casts/LPF 0-3 HYALINE CAST LPF (0-3 Hyaline); RBC/HPF 0-3 HPF (0-3); Squamous Epithelial None Seen HPF (0-3); WBC/HPF 0-3 HPF (0-3)
[2018-02-23] MEDS: Finasteride 5 MG TAB PO SCH (09:08)
[2018-02-23] MEDS: levETIRAcetam 500 MG TAB PO SCH (09:08)
[2018-02-23] MEDS: Saccharomyces boulardii 250 MG CAP PO SCH (09:08)
[2018-02-23] MEDS: Tamsulosin HCl 0.4 MG CAP PO SCH (09:08)
[2018-02-23] MEDS: Dexamethasone 4 MG TAB PO SCH (09:08)
[2018-02-23 14:22] VITALS: BP 121/63; TEMP 98.4
--- NOTE | 2018-02-25 01:01 | EKG ---
Test Reason : Blood Pressure : / mmHG Vent. Rate : 078 BPM Atrial Rate : 078 BPM P-R Int : 176 ms QRS Dur : 122 ms QT Int : 414 ms P-R-T Axes : 036 -11 -12 degrees QTc Int : 471 ms Normal sinus rhythm Right bundle branch block Abnormal ECG Confirmed by JAZMYNE HOPSON DO ([id number]), script editor SHYANNE VALLES ([id number] on 02/25/2018 1:01:12 AM Referred By: Confirmed By:JAZMYNE HOPSON DO
== END 2018-02-23 14:55 ==
LOC: ERS 19:08 → ONC 19:45
PROVIDERS: ADMIT Hospitalist; ATTEND Hospitalist
DX: C79.31 Secondary malignant neoplasm of brain (principal); C15.9 Malignant neoplasm of esophagus, unspecified; G40.909 Epilepsy, unspecified, not intractable, without status epilepticus; I10 Essential (primary) hypertension; F03.90 Unspecified dementia, unspecified severity, without behavioral disturbance, psychotic disturbance, mood disturbance, and anxiety; N40.0 Benign prostatic hyperplasia without lower urinary tract symptoms; Z79.899 Other long term (current) drug therapy; Z86.73 Personal history of transient ischemic attack (TIA), and cerebral infarction without residual deficits; Z88.0 Allergy status to penicillin; Z66 Do not resuscitate
CPT/HCPCS: 80053; 81001; 83605; 87086; 93005; 97139 ×2; 99285; G0378; 36415; J8540